=== PATIENT | female | born 1955 | race Caucasian/White ===

== ENCOUNTER → 2019-11-11 14:16 | Outpatient (CLI) | payer MEDICARE, SELFPAY ==
--- NOTE | 2019-11-11 14:22 | CT_ITS ---
STUDY: LOW DOSE CT LUNG CANCER SCREENING REASON FOR EXAM: Female, 64 years old. LUNG SCREEN/CURRENT SMOKER, 4 PER DAY, 52 YR SMOKER, HX CERVICAL CA RADIATION DOSAGE (If Supplied By Facility): CTDIvol = ( 3.02 ) mGy, DLP = ( 101.18 ) mGycm TECHNIQUE: No contrast was administered. Low dose technique was utilized (average mAS-38 and kVp 120). 1.25 mm axial source images with a slice interval of 1.25-mm were reconstructed in lung windows. 2.5 mm axial source images with a slice interval of 2.5-mm were reconstructed in lung windows. 5.0 mm axial source images with a slice interval of 5.0-mm were reconstructed in soft tissue windows. Nodule measured using lung windows on PACS and/or independent workstation with automated measurement of minimum and maximum diameter. Nodule measurement reported as average diameter rounded to the nearest whole number. Growth is defined as an increase ins size of greater than 1.5 mm. COMPARISON: None. NODULES: Total lung nodules (excluding granulomas): 0 Emphysema: None significant. Mild bronchiectasis and scattered parenchymal fibrosis most localized in the lingula. Endobronchial lesion: None Aorta: Scattered atherosclerosis without obvious aneurysm. Coronary arteries: Mild atherosclerosis Heart: Normal size Pulmonary artery: Unremarkable for unopacified technique. Mediastinal nodes: No dominant tracy mass. Other chest and abdominal findings: Bilateral breast implants identified. There are degenerative changes of the thoracic spine. CT/Chest without Contrast IMPRESSION: 1. Lung-RADS category 1 - Continue annual screening with LDCT in 12 months. IMPORTANT NOTES FOR USE: ACR Lung-RADS Version 1.0 Assessment Categories Release Date: February 14, 2014 Category: Coded 0-4 bases on nodule(s) with highest degree of suspicion. Negative screen is defined as categories 1 and 2; a positive screen is defined as categories 3 and 4. Category 3 and 4A nodules that are unchanged on interval CT should be coded as category 2, and individuals returned to screening in 12 months. Category 4X: Category 3 or 4 nodules with additional imaging findings that increase the suspicion of lung cancer, such as spiculation, GGN that doubles in size in 1 year, enlarged lymph notes, etc. Category Modifiers: S (significant finding unrelated to lung cancer) and C (prior history of treated lung cancer) may be added to the 0-4 Lung-RADS Electronically Signed: Jose Crawford MD (Brooks) at 10:18 EST , Service support ,
== END ==
PROVIDERS: PCP Family Medicine; Referring Provider Family Medicine; Visit Provider Family Medicine
DX: F17.210 Nicotine dependence, cigarettes, uncomplicated (principal); N89.8 Other specified noninflammatory disorders of vagina; Z12.2 Encounter for screening for malignant neoplasm of respiratory organs
CPT/HCPCS: 71250; 87210; G0297

== ENCOUNTER → 2020-11-14 13:10 | Outpatient (CLI) | payer MEDICARE, SELFPAY ==
--- NOTE | 2020-11-14 13:17 | CT_ITS ---
STUDY: LOW DOSE CT LUNG CANCER SCREENING REASON FOR EXAM: Female, 65 years old. Tobacco use, smoked 3 packs/day x 54 years, now down to less than 1/2 pack per day. Hx cervical cancer, breast implants. RADIATION DOSAGE (If Supplied By Facility): CTDIvol = ( 3.02 ) mGy, DLP = ( 106.84 ) mGycm TECHNIQUE: No contrast was administered. Low dose technique was utilized (average mAS-38 and kVp 120). 1.25 mm axial source images with a slice interval of 1.25-mm were reconstructed in lung windows. 2.5 mm axial source images with a slice interval of 2.5-mm were reconstructed in lung windows. 5.0 mm axial source images with a slice interval of 5.0-mm were reconstructed in soft tissue windows. Nodule measured using lung windows on PACS and/or independent workstation with automated measurement of minimum and maximum diameter. Nodule measurement reported as average diameter rounded to the nearest whole number. Growth is defined as an increase ins size of greater than 1.5 mm. COMPARISON: Comparison is made with prior examination dated 11/11/2019. NODULES: No suspicious nodules are seen. Mild residual scarring in the lingular segment of the left upper lobe anteriorly. Emphysema: Stable scarring at the lung apices with a mild degree of emphysematous changes in the upper lobes. Endobronchial lesion: None Aorta: Atherosclerotic plaque of the aortic arch. Coronary arteries: Mild coronary artery calcification. Heart: Unremarkable Pulmonary artery: Unremarkable Mediastinal nodes: Other chest and abdominal findings: CT/Low Dose CT Lung Screening IMPRESSION: Lung-RADS category 2 - Continue annual screening with LDCT in 12 months. IMPORTANT NOTES FOR USE: ACR Lung-RADS Version 1.0 Assessment Categories Release Date: February 14, 2014 Category: Coded 0-4 bases on nodule(s) with highest degree of suspicion. Negative screen is defined as categories 1 and 2; a positive screen is defined as categories 3 and 4. Category 3 and 4A nodules that are unchanged on interval CT should be coded as category 2, and individuals returned to screening in 12 months. Category 4X: Category 3 or 4 nodules with additional imaging findings that increase the suspicion of lung cancer, such as spiculation, GGN that doubles in size in 1 year, enlarged lymph notes, etc. Category Modifiers: S (significant finding unrelated to lung cancer) and C (prior history of treated lung cancer) may be added to the 0-4 Lung-RADS Electronically Signed: César Ch MD at 14:12 EST , Service support ,
== END ==
PROVIDERS: PCP Family Medicine; Referring Provider Family Medicine; Visit Provider Family Medicine
DX: F17.210 Nicotine dependence, cigarettes, uncomplicated (principal); Z12.2 Encounter for screening for malignant neoplasm of respiratory organs
CPT/HCPCS: 71271

== ENCOUNTER → 2021-02-22 10:54 | Outpatient (CLI) | payer MEDICARE, SELFPAY ==
[2021-02-22 12:37] LABS: Absolute Lymphocyte Count 1.62 X10^3/uL (0.83-4.51); Absolute Neutrophil Count 3.7 X10^3/uL (2.0-7.7); Basophil# 0.04 X10^3/uL; Basophil% 0.6 % (0-1); Eosinophils% 3.2 % (0-5); Hematocrit 36.2 % (37-47); Hemoglobin 10.3 g/dL (12.0-15.0); Lymphocyte # 1.62 X10^3/ul (0.83-4.51); Lymphocyte % 26.2 % (19-41); Mean Corp Hgb Conc 28.5 g/dL (32-36); Mean Corpuscular Hgb 22.5 pg (27.0-32.0); Mean Corpuscular Volume 79.2 fL (81-99); Mean Platelet Vol. 10.8 fl (6.2-12.0); Monocyte# 0.64 X10^3/uL; Monocyte% 10.3 % (0-10); NRBC Flagged by Analyzer 0 % (0-5); Neutrophil # 3.68 X10^3/uL (2.7-7.7); Neutrophil % 59.5 % (47-70); Platelet Count 331 K/mm3 (150-450); RBC Distribution Width CV 15.9 % (11.6-14.6); RBC Distribution Width SD 45.6 fl (35.1-43.9); Red Blood Count 4.57 M/mm3 (4.2-5.4); White Blood Count 6.2 K/mm3 (4.4-11.0)
[2021-02-22 12:51] LABS: Vitamin B12 > 2000 pg/mL (211-911)
[2021-02-22 13:25] LABS: AST(SGOT) 18 U/L (15-37); Alanine Aminotransfer ALT/SGPT 24 U/L (13-56); Albumin, Serum 3.9 g/dL (3.2-5.0); Alkaline Phosphatase 93 U/L (45-117); Bilirubin, Direct 0.14 mg/dL (0.00-0.30); Ferritin 4 ng/mL (8-252); Globulin 3.5 g/dL (2.2-4.2); Iron 15 ug/dL (50-170); Iron Binding Capacity,Total 492 ug/dL (250-450); Protein, Total 7.4 g/dL (6.4-8.2)
== END ==
PROVIDERS: PCP Family Medicine; Referring Provider Family Medicine; Visit Provider Family Medicine
DX: R68.2 Dry mouth, unspecified (principal); F50.89 Other specified eating disorder; L29.9 Pruritus, unspecified
CPT/HCPCS: 36415; 80076; 82607; 82728; 82746; 83540; 83550; 85025

== ENCOUNTER → 2021-04-10 09:08 | Outpatient (CLI) | payer MEDICARE, SELFPAY ==
[2021-04-10 10:17] LABS: Absolute Lymphocyte Count 1.37 X10^3/uL (0.83-4.51); Absolute Neutrophil Count 2.3 X10^3/uL (2.0-7.7); Basophil# 0.04 X10^3/uL; Basophil% 0.9 % (0-1); Eosinophil# 0.27 X10^3/uL; Hematocrit 41.3 % (37-47); Hemoglobin 12.5 g/dL (12.0-15.0); Lymphocyte # 1.37 X10^3/ul (0.83-4.51); Lymphocyte % 30.2 % (19-41); Mean Corp Hgb Conc 30.3 g/dL (32-36); Mean Corpuscular Hgb 25.5 pg (27.0-32.0); Mean Corpuscular Volume 84.1 fL (81-99); Mean Platelet Vol. 10.7 fl (6.2-12.0); NRBC Flagged by Analyzer 0 % (0-5); Neutrophil # 2.34 X10^3/uL (2.7-7.7); Neutrophil % 51.7 % (47-70); POSITIVE MORPHOLOGY YES; Platelet Count 268 K/mm3 (150-450); RBC Distribution Width CV 22.6 % (11.6-14.6); Red Blood Count 4.91 M/mm3 (4.2-5.4); White Blood Count 4.5 K/mm3 (4.4-11.0)
[2021-04-10 10:24] LABS: Differential Indicated SCAN CRITERIA MET
[2021-04-10 10:50] LABS: Vitamin B12 > 2000 pg/mL (211-911)
[2021-04-10 10:54] LABS: Ferritin 29 ng/mL (8-252)
[2021-04-10 11:04] LABS: Anisocytosis 1+
== END ==
PROVIDERS: PCP Family Medicine; Referring Provider Family Medicine; Visit Provider Family Medicine
DX: D50.9 Iron deficiency anemia, unspecified (principal); E53.8 Deficiency of other specified B group vitamins
CPT/HCPCS: 36415; 82607; 82728; 85025

== ENCOUNTER → 2021-06-22 08:30 | Outpatient (CLI) | payer MEDICARE, SELFPAY ==
[2021-06-22 10:43] LABS: Vitamin B12 1474 pg/mL (211-911)
== END ==
PROVIDERS: PCP Family Medicine; Referring Provider Family Medicine; Visit Provider Family Medicine
DX: D50.9 Iron deficiency anemia, unspecified (principal)
CPT/HCPCS: 36415; 82607

== ENCOUNTER → 2021-09-04 14:16 | Outpatient (CLI) | payer MEDICARE, SELFPAY ==
[2021-09-04 17:45] LABS: Absolute Lymphocyte Count 1.57 X10^3/uL (0.83-4.51); Absolute Neutrophil Count 3.8 X10^3/uL (2.0-7.7); Basophil# 0.04 X10^3/uL; Basophil% 0.6 % (0-1); Eosinophil# 0.17 X10^3/uL; Eosinophils% 2.7 % (0-5); Hematocrit 41.8 % (37-47); Hemoglobin 13.4 g/dL (12.0-15.0); Lymphocyte # 1.57 X10^3/ul (0.83-4.51); Lymphocyte % 25.2 % (19-41); Mean Corp Hgb Conc 32.1 g/dL (32-36); Mean Corpuscular Hgb 31.2 pg (27.0-32.0); Mean Corpuscular Volume 97.2 fL (81-99); Mean Platelet Vol. 11.5 fl (6.2-12.0); Monocyte# 0.59 X10^3/uL; Monocyte% 9.5 % (0-10); NRBC Flagged by Analyzer 0 % (0-5); Neutrophil # 3.83 X10^3/uL (2.7-7.7); Neutrophil % 61.7 % (47-70); Platelet Count 267 K/mm3 (150-450); RBC Distribution Width CV 12.7 % (11.6-14.6); RBC Distribution Width SD 45.1 fl (35.1-43.9); White Blood Count 6.2 K/mm3 (4.4-11.0)
== END ==
PROVIDERS: PCP Family Medicine; Referring Provider Family Medicine; Visit Provider Family Medicine
DX: J40 Bronchitis, not specified as acute or chronic (principal); D50.9 Iron deficiency anemia, unspecified
CPT/HCPCS: 36415; 85025

== ENCOUNTER 2021-11-30 06:46 | Outpatient (CLI) | payer MEDICARE, SELFPAY ==
--- NOTE | 2021-11-30 06:52 | CT_ITS ---
STUDY: LOW DOSE CT LUNG CANCER SCREENING REASON FOR EXAM: Female, 66 years old. SMOKER. Patient smoked 3 packs per day for 55 years. RADIATION DOSAGE (If Supplied By Facility): CTDIvol = ( 2.01 ) mGy, DLP = ( 68.71 ) mGycm TECHNIQUE: No contrast was administered. Low dose technique was utilized (average mAS-38 and kVp 120). 1.25 mm axial source images with a slice interval of 1.25-mm were reconstructed in lung windows. 2.5 mm axial source images with a slice interval of 2.5-mm were reconstructed in lung windows. 5.0 mm axial source images with a slice interval of 5.0-mm were reconstructed in soft tissue windows. Nodule measured using lung windows on PACS and/or independent workstation with automated measurement of minimum and maximum diameter. Nodule measurement reported as average diameter rounded to the nearest whole number. Growth is defined as an increase ins size of greater than 1.5 mm. COMPARISON: Comparison is made with prior study dated 11/14/2020. NODULES: No suspicious nodules are seen. Emphysema: Hyperinflation. Emphysematous changes. Stable scarring in the upper lobes. Linear scarring in the lingular segment of the left upper lobe. This is unchanged. Mild linear scarring in the lower lobes as well. Endobronchial lesion: None Aorta: Atherosclerotic plaque formation of the aortic arch. Coronary arteries: Mild coronary artery calcification. Heart: Unremarkable Pulmonary artery: Unremarkable Mediastinal nodes: Unremarkable Other chest and abdominal findings: CT/Low Dose CT Lung Screening IMPRESSION: Lung-RADS category 2 - Continue annual screening with LDCT in 12 months. IMPORTANT NOTES FOR USE: ACR Lung-RADS Version 1.1 Assessment Categories Release Date: 2018 Category: Coded 0-4 bases on nodule(s) with highest degree of suspicion. Negative screen is defined as categories 1 and 2; a positive screen is defined as categories 3 and 4. Category 3 and 4A nodules that are unchanged on interval CT should be coded as category 2, and individuals returned to screening in 12 months. Category 4X: Category 3 or 4 nodules with additional imaging findings that increase the suspicion of lung cancer, such as spiculation, GGN that doubles in size in 1 year, enlarged lymph notes, etc. Category Modifiers: S (significant finding unrelated to lung cancer) Electronically Signed: César Ch MD at 15:02 EST ,
== END 2021-11-30 23:59 | disposition home or self-care (01) ==
LOC: CT 06:50
PROVIDERS: PCP Family Medicine; Referring Provider Family Medicine; Visit Provider Family Medicine
DX: F17.210 Nicotine dependence, cigarettes, uncomplicated (principal)
CPT/HCPCS: 71271

== ENCOUNTER 2021-12-05 14:24 | Outpatient (CLI) | payer MEDICARE, SELFPAY ==
--- NOTE | 2021-12-05 14:26 | BI_ITS ---
MAMMOGRAPHY - BILATERAL SCREENING REASON FOR EXAM: Female, 66 years old. Routine annual screening examination. PERTINENT HISTORY: Sister with breast cancer. Bilateral breast implants. TECHNIQUE: Digital bilateral breast bill (3D mammographic acquisition) in the CC and MLO projections. 2-D mediolateral oblique (MLO) and craniocaudad (CC) views of both breasts were obtained. CAD: Full Field Digital Mammography with Computer Added Detection was performed. COMPARISON: Comparison is made with prior abdomen examination dated 12/31/2018. FINDINGS: Breast Composition: There are scattered areas of fibroglandular density. There is a 1.4 cm x 1.5 cm well-defined nodule in the deep upper outer aspect of the left breast. Correlation with ultrasound is recommended. Stable appearance of the bilateral breast implants. No other significant abnormalities are identified. BI/SCRN MAMM (CAD)W/BILL BILAT IMPRESSION: 1.4 cm x 1.5 cm well-defined nodule in the deep upper outer aspect of the left breast. Correlation with ultrasound is recommended. ASSESSMENT CATEGORY: BIRADS Category 0: Incomplete. Need additional imaging evaluation. A letter regarding these results will be sent to the patient by the facility within 30 days. Approximately 10% of breast cancers are not detected by mammography. A normal mammogram should not delay biopsy of a clinically suspicious abnormality. [id number] Electronically Signed: César Ch MD at 13:09 EST ,
== END 2021-12-05 23:59 | disposition home or self-care (01) ==
LOC: OPBI 14:24
PROVIDERS: PCP Family Medicine; Referring Provider Family Medicine; Visit Provider Family Medicine
DX: Z12.31 Encounter for screening mammogram for malignant neoplasm of breast (principal)
CPT/HCPCS: 77063; 77067

== ENCOUNTER 2021-12-18 14:20 | Outpatient (CLI) | payer MEDICARE, SELFPAY ==
--- NOTE | 2021-12-18 14:23 | US_ITS ---
STUDY: ULTRASOUND BREAST - LEFT REASON FOR EXAM: Female, 66 years old. Abnormal screening mammogram. TECHNIQUE: Axial and longitudinal images of the LEFT breast were performed with a high resolution ultrasound transducer. # OF IMAGES: 13 COMPARISON: Comparison is made with prior mammogram dated 12/05/2021. FINDINGS: LEFT Breast: The mammographic abnormality corresponds to a 1.3 cm x 1.6 cm x 0.4 cm cyst at the 1 o''clock position of the breast at 6 cm from the nipple. US/Breast Limited Unilateral IMPRESSION: The mammographic abnormality corresponds to a 1.3 cm x 1.6 cm x 0.4 cm cyst at the 1 o''clock position of the breast at 6 cm from the nipple. ASSESSMENT CATEGORY: BIRADS Category 2: Benign. A letter regarding these results will be sent to the patient by the facility within 30 days. Electronically Signed: César Ch MD at 15:15 EST ,
== END 2021-12-18 23:59 | disposition home or self-care (01) ==
LOC: OPUS 14:21
PROVIDERS: PCP Family Medicine; Referring Provider Family Medicine; Visit Provider Family Medicine
DX: R92.8 Other abnormal and inconclusive findings on diagnostic imaging of breast (principal)
CPT/HCPCS: 76642

== ENCOUNTER → 2022-07-12 | Outpatient (CLI) | payer MEDICARE, SELFPAY ==
[2022-07-12 12:21] LABS: Absolute Lymphocyte Count 0.95 X10^3/uL (0.83-4.51); Absolute Neutrophil Count 7.7 X10^3/uL (2.0-7.7); Basophil# 0.02 X10^3/uL; Basophil% 0.2 % (0-1); Eosinophil# 0.09 X10^3/uL; Hematocrit 43.8 % (37-47); Hemoglobin 14.1 g/dL (12.0-15.0); Lymphocyte # 0.95 X10^3/ul (0.83-4.51); Lymphocyte % 10.1 % (19-41); Mean Corp Hgb Conc 32.2 g/dL (32-36); Mean Corpuscular Volume 99.5 fL (81-99); Mean Platelet Vol. 11.6 fl (6.2-12.0); Monocyte# 0.54 X10^3/uL; Monocyte% 5.8 % (0-10); NRBC Flagged by Analyzer 0 % (0-5); Neutrophil # 7.73 X10^3/uL (2.7-7.7); Neutrophil % 82.6 % (47-70); Platelet Count 198 K/mm3 (150-450); RBC Distribution Width CV 12.5 % (11.6-14.6); RBC Distribution Width SD 46.1 fl (35.1-43.9); White Blood Count 9.4 K/mm3 (4.4-11.0)
[2022-07-12 12:37] LABS: AST(SGOT) 21 U/L (15-37); Alanine Aminotransfer ALT/SGPT 31 U/L (13-56); Albumin, Serum 3.7 g/dL (3.2-5.0); Alkaline Phosphatase 85 U/L (45-117); Anion Gap 7 (5-15); BUN 22 mg/dL (7-18); BUN/Creat Ratio 27.2 RATIO (10-20); Bilirubin, Direct 0.23 mg/dL (0.00-0.30); Calcium,Total 8.8 mg/dL (8.5-10.1); Chloride 107 mmol/L (98-107); Creatinine, Serum 0.81 mg/dL (0.55-1.02); EST Glomerular Filtration Rate 75 mL/min (>60); Est Glom Filt Rate - Afr Amer 91 mL/min (>60); Ferritin 24 ng/mL (8-252); Glucose 88 mg/dL (74-106); Iron 60 ug/dL (50-170); Iron Binding Capacity,Total 341 ug/dL (250-450); PERCENT IRON SATURATION 17.6 % (15.0-55.0); Potassium 3.8 mmol/L (3.5-5.1); Protein, Total 6.7 g/dL (6.4-8.2); Sodium Level 142 mmol/L (136-145)
== END | disposition home or self-care (01) ==
LOC: MTLAB 10:36
PROVIDERS: PCP Family Medicine; Referring Provider Family Medicine; Visit Provider Family Medicine
DX: R10.12 Left upper quadrant pain (principal); D50.9 Iron deficiency anemia, unspecified
CPT/HCPCS: 36415; 80048; 80076; 82728; 83540; 83550; 85025

== ENCOUNTER → 2022-07-19 | Outpatient (CLI) | payer MEDICARE, SELFPAY ==
--- NOTE | 2022-07-19 08:20 | US_ITS ---
PROCEDURES: ULTRASOUND AORTA REASON FOR EXAM: Female, 67 years old. LUQ PAIN. History of smoking. Weight loss. TECHNIQUE: Ultrasound evaluation of the aorta was performed with real-time and static espana-scale imaging. COMPARISON: None. FINDINGS: There is atherosclerotic plaque formation of the abdominal aorta. Aorta measures: Proximal 2.7 cm. Middle 2.1 cm. Distal 2.0 cm. Aorta measure transversely: Proximal 2.7 cm. Middle 1.5 cm. Distal 1.5 cm. Right iliac artery measures: 1.1 cm. Right iliac artery measure transversely: 0.8 cm. Left iliac artery measures: 1.0 cm. Left iliac artery measure transversely: 0.7 cm. There is no demonstrated aneurysm.. US/Aorta IMPRESSION: Atherosclerotic plaque formation of the abdominal aorta. No evidence of aneurysm. Electronically Signed: César Ch MD at 12:13 EDT ,
== END | disposition home or self-care (01) ==
LOC: US 08:18
PROVIDERS: PCP Family Medicine; Referring Provider Family Medicine; Visit Provider Family Medicine
DX: R10.12 Left upper quadrant pain (principal)
CPT/HCPCS: 76775

== ENCOUNTER → 2022-07-25 | Outpatient (CLI) | payer MEDICARE, SELFPAY ==
[2022-07-25 16:27] LABS: Free T3 2.6 pg/mL (2.18-3.98); T4 Free Direct 0.83 ng/dL (0.76-1.46); Thyroid Stim Hormone (TSH) 3.27 uIU/mL (0.358-3.74)
[2022-07-30 00:07] LABS: Thyroid Peroxidase AB 232 IU/mL (0-34)
[2022-07-30 10:47] LABS: Thyroglobulin Antibody 3.3 IU/mL (0.0-0.9)
== END | disposition home or self-care (01) ==
LOC: BFHLAB 13:28
PROVIDERS: PCP Family Medicine; Visit Provider Family Medicine
DX: E05.90 Thyrotoxicosis, unspecified without thyrotoxic crisis or storm (principal)
CPT/HCPCS: 36415; 84439; 84443; 84481; 86376; 86800

== ENCOUNTER → 2022-08-21 | Outpatient (CLI) | payer MEDICARE, SELFPAY ==
[2022-08-21 19:07] LABS: CRP < 2.90 mg/L (0.0-3.0); Thyroid Stim Hormone (TSH) 3.98 uIU/mL (0.358-3.74)
[2022-08-23 15:08] LABS: Endomysial Antibody IgA Negative (Negative)
[2022-08-24 17:46] LABS: Immunoglobulin A 177 mg/dL (87-352); t-Transglutaminase IgA <2 U/mL (0-3)
== END | disposition home or self-care (01) ==
LOC: MTLAB 16:52
PROVIDERS: PCP Family Medicine; Visit Provider Internal Medicine Gastroenterology
DX: R63.4 Abnormal weight loss (principal)
CPT/HCPCS: 36415; 82784; 83516; 84436; 84443; 86140; 86255

== ENCOUNTER → 2022-09-03 | Outpatient (CLI) | payer MEDICARE, SELFPAY ==
--- NOTE | 2022-09-03 12:53 | CT_ITS ---
STUDY: CT ABDOMEN AND PELVIS WITH CONTRAST REASON FOR EXAM: Female, 67 years old. ROSHNI` RADIATION DOSAGE (If Supplied By Facility): CTDIvol = ( 10.61 ) mGy, DLP = ( 396.95 ) mGycm TECHNIQUE: Transaxial images were obtained from the dome of the diaphragm to the symphysis pubis without oral contrast. Oral and amp; IV Readi-CAT and amp; 100mL Isovue-300 was administered. Sagittal and coronal images were reconstructed. Individualized dose optimization techniques were used for this CT. COMPARISON: None. FINDINGS: The visualized lung bases are unremarkable. The visualized portions of the heart are within normal limits. Normal liver. Patient is status post cholecystectomy. There is no evidence for biliary ductal dilatation. Normal spleen. Normal pancreas. Normal bilateral adrenal glands. There is a 3 cm complex cyst in the upper pole of the right kidney there is an additional 1 cm cyst in the lower pole the right kidney too small to characterize. Normal left kidney. Normal visualized stomach. Normal small intestine. Normal colon. Appendix not well visualized although no inflammation is noted in the right lower quadrant. Normal abdominal aorta. Normal inferior vena cava. Normal retroperitoneum. Evaluation of the urinary bladder is limited secondary to under distention. Normal abdominal wall. Normal osseous structures. CT/Abdomen/Pelvis WITH Contrast IMPRESSION: Complex cyst in the upper pole the right kidney. Follow-up study CT renal protocol recommended for further evaluation. Electronically Signed: Rom Choudhury MD at 14:47 EST ,
[2022-09-03 13:31] LABS: CREATININE FINGERSTICK < 0.9 mg/dL (0.55-1.02); EGFR FINGERSTICK > 60.0000 mL/min (>60)
== END | disposition home or self-care (01) ==
PROVIDERS: PCP Family Medicine; Referring Provider Internal Medicine Gastroenterology; Visit Provider Internal Medicine Gastroenterology
DX: D50.9 Iron deficiency anemia, unspecified (principal); R63.4 Abnormal weight loss
CPT/HCPCS: 74177; Q9967

== ENCOUNTER → 2022-10-03 | Outpatient (CLI) | payer MEDICARE, SELFPAY ==
[2022-10-03 15:00] LABS: Absolute Neutrophil Count 3.4 X10^3/uL (2.0-7.7); Basophil# 0.03 X10^3/uL; Basophil% 0.6 % (0-1); Eosinophil# 0.09 X10^3/uL; Eosinophils% 1.7 % (0-5); Hematocrit 44.7 % (37-47); Hemoglobin 14.5 g/dL (12.0-15.0); Lymphocyte % 24.2 % (19-41); Mean Corp Hgb Conc 32.4 g/dL (32-36); Mean Corpuscular Volume 95.7 fL (81-99); Mean Platelet Vol. 11.9 fl (6.2-12.0); Monocyte# 0.53 X10^3/uL; Monocyte% 9.9 % (0-10); NRBC Flagged by Analyzer 0 % (0-5); Neutrophil # 3.42 X10^3/uL (2.7-7.7); Neutrophil % 63.4 % (47-70); Platelet Count 249 K/mm3 (150-450); RBC Distribution Width CV 12.7 % (11.6-14.6); Red Blood Count 4.67 M/mm3 (4.2-5.4); White Blood Count 5.4 K/mm3 (4.4-11.0)
[2022-10-03 15:18] LABS: Free T3 2.7 pg/mL (2.18-3.98); T4 Free Direct 0.83 ng/dL (0.76-1.46); Thyroid Stim Hormone (TSH) 3.92 uIU/mL (0.358-3.74)
== END | disposition home or self-care (01) ==
LOC: BFHLAB 11:47
PROVIDERS: PCP Family Medicine; Visit Provider Family Medicine
DX: E03.9 Hypothyroidism, unspecified (principal); I48.92 Unspecified atrial flutter
CPT/HCPCS: 36415; 84439; 84443; 84481; 85025

== ENCOUNTER → 2022-10-18 | Outpatient (CLI) | payer MEDICARE, SELFPAY ==
--- NOTE | 2022-10-18 12:54 | ECHOD_ITS ---
Reason For Study: AFLUTTER Procedure This was a 2D Doppler, Color Flow transthoracic echocardiogram. The exam was of adequate technical quality. Exam performed in department. Left Ventricle Normal LV size. Left ventricular systolic function is normal. The estimated ejection fraction is 65 %. Diastolic function is indeterminate. No regional wall motion abnormalities noted. Right Ventricle Normal RV size. Normal systolic function. Atria Normal left atrium. Normal right atrium. No doppler evidence for ASD. Mitral Valve There is no mitral annular calcification. Anterior leaflet diffuse mitral valve thickening. Mild (1+) mitral valve insufficiency. Tricuspid Valve Normal tricuspid valve. Mild to moderate (1-2+) tricuspid valve insufficiency. Right ventricular systolic pressure estimated to be 39 mmHg. Aortic Valve Trisinus/trileaflet aortic valve. Mild diffuse aortic valve thickening. Trivial aortic valve insufficiency. Pulmonic Valve The pulmonic valve is not well visualized. Great Vessels Mildly dilated aortic root. Pericardium/Pleural No pericardial effusion. MMode/2D Measurements & Calculations LVIDd: 4.5 cm IVSd: 0.91 cm Ao root diam: 4.2 cm LVIDs: 2.9 cm LVPWd: 1.0 cm RVDd: 3.6 cm FS: 35.7 % LAV(MOD-sp4): 45.6 ml LVAd ap4: 20.6 cm2 SV(MOD-sp4): 33.0 ml LVLd ap4: 6.5 cm EDV(MOD-sp4): 53.1 ml EDV(sp4-el): 55.6 ml LVAs ap4: 10.4 cm2 LVLs ap4: 4.5 cm ESV(MOD-sp4): 20.1 ml ESV(sp4-el): 20.3 ml EF(MOD-sp4): 62.2 % EF(sp4-el): 63.4 % SV(sp4-el): 35.2 ml LA A4 area: 18.0 cm2 RA A4 area: 18.6 cm2 Time Measurements MV dec time: 0.16 sec Doppler Measurements & Calculations MV E max dexter: 104.5 cm/sec Lat Peak E' Dexter: 7.7 cm/sec Med Peak E' Dexter: 6.7 cm/sec MV A max dexter: 90.4 cm/sec E/E' lat: 13.6 E/E' med: 15.6 MV E/A: 1.2 MV V2 max: 100.0 cm/sec Ao V2 max: 120.1 cm/sec MV max P.0 mmHg MV dec slope: 664.7 cm/sec2 Ao max P.8 mmHg MV V2 mean: 71.7 cm/sec Ao V2 mean: 85.1 cm/sec MV mean P.2 mmHg Ao mean P.3 mmHg MV V2 VTI: 23.6 cm Ao V2 VTI: 26.9 cm AV (velocity ratio): 0.91 LV V1 max: 104.5 cm/sec PA V2 max: 84.7 cm/sec TR max dexter: 244.2 cm/sec LV V1 max P.4 mmHg PA V2 mean: 63.4 cm/sec TR max P.9 mmHg LV V1 mean P.5 mmHg LV V1 mean: 74.1 cm/sec LV V1 VTI: 24.4 cm ECHO/Echo Complete Interpretation Summary Left ventricular systolic function is normal. The estimated ejection fraction is 65 %. Anterior leaflet diffuse mitral valve thickening. Mild (1+) mitral valve insufficiency. Mild to moderate (1-2+) tricuspid valve insufficiency. Mild diffuse aortic valve thickening. Trivial aortic valve insufficiency. Mildly dilated aortic root. Right ventricular systolic pressure estimated to be 39 mmHg. Diastolic function is indeterminate. Ordering Physician: Ana Massey Referring Physician: ANA MASSEY Performed By: Avril Ivey RCS
== END | disposition home or self-care (01) ==
LOC: CVS 12:52
PROVIDERS: PCP Family Medicine; Visit Provider Family Medicine
DX: I48.4 Atypical atrial flutter (principal)
CPT/HCPCS: 93306

== ENCOUNTER → 2022-11-14 | Outpatient (CLI) | payer MEDICARE, SELFPAY ==
--- NOTE | 2022-11-14 12:30 | STRESSREP ---
Stress Test Report Date: 11/14/2022 Procedure: Exercise tolerance test/imaging study Indications: Dyspnea on exertion Consent: Per the patient Procedure: The patient exercised on a Marcos protocol for 7 minutes and 15 seconds achieving a peak heart rate of 116 bpm (76% predicted maximal heart rate) with a peak blood pressure 112/60 mmHg and a peak MET capacity of 10.1 METs. The baseline ECG demonstrated normal sinus rhythm. The peak exercise ECG demonstrated no ischemic changes. There were no cardiac dysrhythmias pretest, during exercise, or recovery. The functional capacity was considered average. There was no complaint of chest discomfort during exercise or recovery. The examination was discontinued secondary to leg discomfort. The patient was injected with 11.7 mCi of technetium 99m Cardiolite and subsequently rest SPECT Cardiolite nuclear imaging was obtained in the horizontal long, vertical long, and short axis views. Post-exercise, the patient was injected with 33.1 mCi of technetium 99m Cardiolite and subsequently stress SPECT Cardiolite nuclear imaging was obtained in the horizontal long, vertical long, and short axis views. A gated Cardiolite study at peak stress was obtained. Rest and stress SPECT Cardiolite nuclear imaging status post realignment, normalization, and attenuation correction, demonstrates the appearance of relative uniform tracer uptake and myocardial perfusion appearing within normal limits. There is end systolic thickening and brightening. The gated Cardiolite study demonstrates myocardial thickening and inward wall motion. The reported LVEF is 79%. Impression: 1. Mildly suboptimal test secondary to failure to achieve target heart rate 2. Peak exercise ECG no ischemic change 3. There were no cardiac dysrhythmias pretest, during exercise, or recovery 4. Rest and stress SPECT Cardiolite nuclear imaging demonstrate no fixed or reversible perfusion deep. 5. The gated Cardiolite study reports an LVEF of 79%. This note was generated with [employer] software. It may contain incorrect words, spelling, and punctuation that were not noted in checking the note before signing.
== END | disposition home or self-care (01) ==
PROVIDERS: PCP Family Medicine; Referring Provider Internal Medicine Cardiovascular Disease; Visit Provider Internal Medicine Cardiovascular Disease
DX: Z01.810 Encounter for preprocedural cardiovascular examination (principal); I48.92 Unspecified atrial flutter; R06.09 Other forms of dyspnea; R00.2 Palpitations; R00.0 Tachycardia, unspecified
CPT/HCPCS: 78452; 93017; A9500; A4216

== ENCOUNTER → 2022-12-19 | Outpatient (CLI) | payer MEDICARE, SELFPAY ==
[2022-12-19 17:47] LABS: Absolute Lymphocyte Count 1.43 X10^3/uL (0.83-4.51); Absolute Neutrophil Count 2.6 X10^3/uL (2.0-7.7); Basophil# 0.05 X10^3/uL; Eosinophil# 0.16 X10^3/uL; Eosinophils% 3.3 % (0-5); Hematocrit 30.4 % (37-47); Hemoglobin 8.8 g/dL (12.0-15.0); Lymphocyte # 1.43 X10^3/ul (0.83-4.51); Lymphocyte % 29.7 % (19-41); Mean Corp Hgb Conc 28.9 g/dL (32-36); Mean Corpuscular Volume 86.4 fL (81-99); Mean Platelet Vol. 10.5 fl (6.2-12.0); Monocyte# 0.55 X10^3/uL; Monocyte% 11.4 % (0-10); NRBC Flagged by Analyzer 0 % (0-5); Neutrophil # 2.61 X10^3/uL (2.7-7.7); Neutrophil % 54.4 % (47-70); Platelet Count 293 K/mm3 (150-450); RBC Distribution Width SD 44.5 fl (35.1-43.9); Red Blood Count 3.52 M/mm3 (4.2-5.4); White Blood Count 4.8 K/mm3 (4.4-11.0)
[2022-12-19 18:15] LABS: ALB/GLOB Ratio 1.3 RATIO (0.9-2.4); AST(SGOT) 28 U/L (15-37); Alanine Aminotransfer ALT/SGPT 32 U/L (13-56); Albumin, Serum 3.9 g/dL (3.2-5.0); Alkaline Phosphatase 88 U/L (45-117); Anion Gap 6 (5-15); BUN 29 mg/dL (7-18); BUN/Creat Ratio 33.3 RATIO (10-20); Chloride 106 mmol/L (98-107); Cholesterol 176 mg/dL (200); Creatinine, Serum 0.87 mg/dL (0.55-1.02); EST Glomerular Filtration Rate 69 mL/min (>60); Est Glom Filt Rate - Afr Amer 83 mL/min (>60); Globulin 2.9 g/dL (2.2-4.2); Glucose 79 mg/dL (74-106); High Density Lipoprotein 84 mg/dL; Potassium 3.9 mmol/L (3.5-5.1); Protein, Total 6.8 g/dL (6.4-8.2); Sodium Level 138 mmol/L (136-145); Thyroid Stim Hormone (TSH) 4.42 uIU/mL (0.358-3.74); Triglycerides 55 mg/dL; Very Low Density Lipoprotein 11 mg/dL (5-40)
== END | disposition home or self-care (01) ==
LOC: BFHLAB 15:22
PROVIDERS: PCP Family Medicine; Visit Provider Family Medicine
DX: Z00.00 Encounter for general adult medical examination without abnormal findings (principal); I48.92 Unspecified atrial flutter; D50.9 Iron deficiency anemia, unspecified; R53.83 Other fatigue; E78.5 Hyperlipidemia, unspecified
CPT/HCPCS: 36415; 80053; 80061; 84443; 85025

== ENCOUNTER → 2023-01-17 | Outpatient (CLI) | payer MEDICARE, SELFPAY ==
[2023-01-17 12:11] LABS: Absolute Lymphocyte Count 1.02 X10^3/uL (0.83-4.51); Absolute Neutrophil Count 4.3 X10^3/uL (2.0-7.7); Basophil# 0.04 X10^3/uL; Basophil% 0.6 % (0-1); Eosinophil# 0.22 X10^3/uL; Eosinophils% 3.5 % (0-5); Hematocrit 46.8 % (37-47); Hemoglobin 14.2 g/dL (12.0-15.0); Lymphocyte # 1.02 X10^3/ul (0.83-4.51); Lymphocyte % 16.4 % (19-41); Mean Corp Hgb Conc 30.3 g/dL (32-36); Mean Corpuscular Hgb 27.5 pg (27.0-32.0); Mean Corpuscular Volume 90.7 fL (81-99); Monocyte# 0.65 X10^3/uL; Monocyte% 10.5 % (0-10); NRBC Flagged by Analyzer 0 % (0-5); Neutrophil # 4.25 X10^3/uL (2.7-7.7); Neutrophil % 68.5 % (47-70); POSITIVE MORPHOLOGY YES; Platelet Count 258 K/mm3 (150-450); RBC Distribution Width CV 21.1 % (11.6-14.6); RBC Distribution Width SD 68.2 fl (35.1-43.9); RET-HE 34.1 pg (30-35); Red Blood Count 5.16 M/mm3 (4.2-5.4); Reticulocyte Count 1.21 % (0.5-1.5); White Blood Count 6.2 K/mm3 (4.4-11.0)
[2023-01-17 12:23] LABS: Differential Indicated SCAN CRITERIA MET
[2023-01-17 12:41] LABS: Anisocytosis 2+; Differential Comment SCANNED; Macrocytosis 1+; Microcytosis 1+
[2023-01-17 12:46] LABS: Ferritin 25 ng/mL (8-252); Iron 111 ug/dL (50-170); Iron Binding Capacity,Total 360 ug/dL (250-450); PERCENT IRON SATURATION 30.8 % (15.0-55.0)
== END | disposition home or self-care (01) ==
PROVIDERS: PCP Family Medicine; Referring Provider Family Medicine; Visit Provider Family Medicine
DX: D50.9 Iron deficiency anemia, unspecified (principal)
CPT/HCPCS: 36415; 82728; 83540; 83550; 85025; 85045

== ENCOUNTER → 2023-01-28 | Outpatient (CLI) | payer MEDICARE, SELFPAY ==
--- NOTE | 2023-01-28 16:43 | BI_ITS ---
MAMMOGRAPHY - BILATERAL SCREENING 3-D TOMOSYNTHESIS REASON FOR EXAM: Female, 67 years old. SCREENING PERTINENT HISTORY: Sister with breast cancer.. Implants TECHNIQUE: 2-D mammograms and 3-D Tomosynthesis of the breast (s) were performed. CAD was performed. COMPARISON: 12/05/2021 FINDINGS: The breast composition is composed of scattered fibroglandular density. Scattered benign calcifications are seen. No dense spiculated masses or suspicious microcalcifications are identified. No architectural distortion is identified. There is no skin thickening or retraction. Stable well-defined 1.4 x 1.5 cm nodule in the upper-outer quadrant of the left breast. This has been previously evaluated with ultrasound and shown to represent a simple cyst. There has been no significant change since the prior study. Implants are intact and free of complication BI/SCRN MAMM (CAD)W/BILL BILAT IMPRESSION: No mammographic signs of malignancy. Routine yearly mammograms recommended. ASSESSMENT CATEGORY: BIRADS Category 2: Benign. A letter regarding these results will be sent to the patient by the facility within 30 days. FOLLOW UP RECOMMENDATION: Yearly follow up mammogram recommended. (A) Approximately 10% of breast cancers are not detected by mammography. A normal mammogram should not delay biopsy of a clinically suspicious abnormality. Electronically Signed: Boo Cruz MD at 7:38 EDT ,
--- NOTE | 2023-01-28 17:18 | CT_ITS ---
STUDY: LOW DOSE CT LUNG CANCER SCREENING REASON FOR EXAM: Female, 67 years old. SMOKER RADIATION DOSAGE (If Supplied By Facility): CTDIvol = ( 2.01 ) mGy, DLP = ( 70.47 ) mGycm TECHNIQUE: No contrast was administered. Low dose technique was utilized (average mAS-38 and kVp 120). 1.25 mm axial source images with a slice interval of 1.25-mm were reconstructed in lung windows. 1.25 mm sagittal and coronal source images with a slice interval of 1.25 were reconstructed in lung windows. COMPARISON: 11/30/2021. NODULES: Parenchyma: Mild bilateral apical scarring. No airspace consolidation, effusion, or pneumothorax. Linear subsegmental atelectasis in the lung bases. Mild bilateral perihilar peribronchial thickening distal endobronchial debris in the medial right middle lobe and anterior left lower lobe. Associated segmental atelectasis along the medial right middle lobe with distal tree-in-bud opacities of the anterior lateral left lower lobe. Nodules: No suspicious pulmonary nodules are seen in the aerated lungs. Aorta: Mild aortic atherosclerosis without ectasia CORONARY ARTERIES: Mild coronary atherosclerosis. Heart: No cardiomegaly. No pericardial effusion. Pulmonary artery: No main pulmonary arterial enlargement. Mediastinal nodes: Multiple subcentimeter presacral lymph nodes are present, nonpathologic by size criteria and unchanged from November 30, 2021 Other chest and abdominal findings: Bilateral breast implants are present. CT/Low Dose CT Lung Screening IMPRESSION: New bilateral peribronchial thickening with intraluminal debris and associated atelectasis in the medial right middle lobe and anterolateral left lower lobe, together suggestive of acute bronchitis/bronchiolitis. Atelectasis limits screening for nodularity in the right middle lobe and anterior left lower lobe. No suspicious pulmonary nodules are identified in the aerated lung. Lung-RADS category 0 - Incomplete. Additional lung cancer screening CT images and/or comparison to prior chest CT examination is needed. RECOMMENDATION: Repeat low-dose cancer screening in 8-12 weeks after treatment IMPORTANT NOTES FOR USE: ACR Lung-RADS Version 1.1 Assessment Categories Release Date: 2018 Category: Coded 0-4 bases on nodule(s) with highest degree of suspicion. Negative screen is defined as categories 1 and 2; a positive screen is defined as categories 3 and 4. Category 3 and 4A nodules that are unchanged on interval CT should be coded as category 2, and individuals returned to screening in 12 months. Category 4X: Category 3 or 4 nodules with additional imaging findings that increase the suspicion of lung cancer, such as spiculation, GGN that doubles in size in 1 year, enlarged lymph notes, etc. Category Modifiers: S (significant finding unrelated to lung cancer) Electronically Signed: Sergei Joaquin MD at 8:20 EDT ,
== END | disposition home or self-care (01) ==
LOC: CT 01-29 07:17
PROVIDERS: PCP Family Medicine; Referring Provider Family Medicine; Visit Provider Family Medicine
DX: Z12.2 Encounter for screening for malignant neoplasm of respiratory organs (principal); Z12.31 Encounter for screening mammogram for malignant neoplasm of breast; Z87.891 Personal history of nicotine dependence
CPT/HCPCS: 71271; 77063; 77067

== ENCOUNTER → 2023-02-21 | Outpatient (CLI) | payer MEDICARE, SELFPAY | END | disposition home or self-care (01) | LOC: LABSPEC 16:05 | PROVIDERS: PCP Family Medicine; Visit Provider Family Medicine | DX: N76.1 Subacute and chronic vaginitis (principal) ==

== ENCOUNTER → 2023-08-06 | Outpatient (CLI) | payer MEDICARE, SELFPAY ==
--- NOTE | 2023-08-06 15:25 | NEURO ---
NCS and/or EMG Patient Report Ordering Doctor: Adam Art DATE OF SERVICE: 08/06/23 Zhanna presents for electrodiagnostic testing of the upper limbs. She reports numbness and tingling in both hands, worse typically on the left side. Electrodiagnostic findings: Left median motor nerve demonstrates normal distal latency and amplitude with reduced conduction velocity. Right median motor nerve demonstrates prolonged distal latency with normal amplitude and reduced conduction velocity. Prolonged median sensory latency at the wrist, more prominently on the right side. Normal ulnar and radial sensory responses bilaterally. Prolonged median F?waves bilaterally. Ulnar motor responses are within normal limits. Needle EMG testing was performed in the upper limbs. All muscles tested showed no evidence of denervation with normal motor unit action potentials. Electrodiagnostic impression: This is an abnormal study in the upper limbs 1. Electrodiagnostic findings suggestive of bilateral median mononeuropathy. This is consistent with a mild bilateral carpal tunnel syndrome. 2. No electrodiagnostic evidence is noted for cervical radiculopathy. Multi Select Codes Neurology Neurology Interp Codes: 92444-63 Musc test done w/n test comp (interp) (2) and 98673-63 Nr cndj test 13/> studies (interp)
== END | disposition home or self-care (01) ==
LOC: PSN 13:38
PROVIDERS: PCP Family Medicine; Referring Provider Orthopaedic Surgery; Visit Provider Orthopaedic Surgery
DX: R20.2 Paresthesia of skin (principal)
CPT/HCPCS: 95886; 95913

== ENCOUNTER → 2023-09-12 | Outpatient (CLI) | payer MEDICARE, SELFPAY ==
--- NOTE | 2023-09-12 17:41 | CT_ITS ---
EXAM: CT ABDOMEN AND PELVIS WITHOUT AND WITH INTRAVENOUS CONTRAST CLINICAL INDICATION: KIDNEY CYST TECHNIQUE: Helically acquired images were obtained of the abdomen and pelvis without and with intravenous contrast. This CT exam was performed using one or more of the following dose reduction techniques: automated exposure control, adjustment of the mA and/or kV according to patient size, and/or use of iterative reconstruction technique. CONTRAST: IV 100mL Isovue-300 COMPARISON: 09/03/2022 FINDINGS: LOWER THORAX: Unremarkable. Lung bases are clear. No cardiomegaly. No significant pericardial effusion. ABDOMEN: LIVER: Unremarkable. Homogeneous. No focal mass. GALLBLADDER AND BILE DUCTS: There are surgical clips from a cholecystectomy. No intra- or extrahepatic biliary ductal dilation. PANCREAS: Unremarkable. No focal cystic or solid mass. SPLEEN: Unremarkable. Normal size without focal cystic or solid mass. ADRENALS: Unremarkable. No nodules. KIDNEYS AND URETERS: There is a low-density lesion in the right kidney compatible with simple cyst. No follow-up imaging is necessary. No hydronephrosis. STOMACH AND BOWEL: There is a 2.0 x 1.3 cm fat density lesion seen within a proximal small bowel loop in the left upper abdomen compatible with a lipoma. This is unchanged from the reference exam. No stomach or bowel distention. No focal inflammatory change. PELVIS: APPENDIX: No evidence of acute appendicitis. BLADDER: Unremarkable. REPRODUCTIVE: The patient status post hysterectomy. ABDOMEN and PELVIS: INTRAPERITONEAL SPACE: Unremarkable. No ascites or other fluid collection. No free air. BONES/JOINTS: Unremarkable. No suspicious lytic or blastic abnormality. SOFT TISSUES: See above. VASCULATURE: Unremarkable. Abdominal aorta is non-dilated. LYMPH NODES: Unremarkable. No enlarged lymph nodes. OTHER FINDINGS: Delayed images show normal excretion of contrast bilaterally. CT/CT Abd/Pelvis W/WO Contrast IMPRESSION: No acute findings in the abdomen or pelvis. Electronically Signed: Kane Jimenez MD at 0:00 EST ,
[2023-09-12 18:07] LABS: CREATININE FINGERSTICK < 0.9 mg/dL (0.55-1.02); EGFR FINGERSTICK > 60.0000 mL/min (>60)
== END | disposition home or self-care (01) ==
LOC: CT 17:39
PROVIDERS: PCP Family Medicine; Referring Provider Family Medicine; Visit Provider Family Medicine
DX: N28.1 Cyst of kidney, acquired (principal)
CPT/HCPCS: 74178; Q9967

== ENCOUNTER → 2023-12-29 | Outpatient (CLI) | payer MEDICARE, SELFPAY ==
--- NOTE | 2023-12-29 09:30 | CT_ITS ---
STUDY: CT ABDOMEN AND PELVIS WITH CONTRAST REASON FOR EXAM: Female, 68 years old. Two-year history of abdominal pain and spasms. History of cervical carcinoma. RADIATION DOSAGE (If Supplied By Facility): CTDIvol = ( 13.98 ) mGy, DLP = ( 575.71 ) mGycm TECHNIQUE: Transaxial images were obtained from the dome of the diaphragm to the symphysis pubis without oral contrast. Oral and amp; IV Gastrografin and amp; 75mL Isovue-300 was administered. Sagittal and coronal images were reconstructed. Individualized dose optimization techniques were used for this CT. COMPARISON: Comparison is made with prior study dated September 12, 2023. FINDINGS: Bilateral breast implants. Minimal increased linear markings at the lung bases suggestive of scarring. The visualized portions of the heart are within normal limits. Mild degree of central intrahepatic biliary ductal dilatation most likely secondary to prior cholecystectomy. There are surgical clips in the gallbladder fossa consistent with a prior cholecystectomy. Normal spleen. Normal pancreas. Normal bilateral adrenal glands. 2.3 cm cyst in the upper pole of the right kidney. 1 cm cyst in the mid lateral portion of the right kidney. Mild degree of right hydronephrosis and right hydroureter. 2 mm nonobstructive calculus in the midpole calyx of the right kidney. Questionable 3 mm calculus in the distal portion of the right ureter. Normal left kidney. Normal visualized stomach. Stable 2 cm x 1.3 cm fat density in the proximal small bowel loop in the left upper quadrant. There are scattered colonic diverticula consistent with diverticulosis. The patient is status post appendectomy. There is evidence of a fatty ileocecal valve. There is scattered atherosclerotic calcification of the abdominal aorta, without a demonstrated aneurysm. Normal inferior vena cava. Normal retroperitoneum. Normal urinary bladder. There is absence of the uterus consistent with a prior hysterectomy. Multiple calcified phleboliths are seen in the pelvis. Normal abdominal wall. Normal osseous structures. CT/Abdomen/Pelvis WITH Contrast IMPRESSION: Status post hysterectomy, cholecystectomy and appendectomy. Mild right hydronephrosis most likely secondary to a tiny calculus in the distal portion of the right ureter. Small right renal cysts. Electronically Signed: César Ch MD at 12:15 EDT ,
[2023-12-29 11:46] LABS: CREATININE FINGERSTICK 1.3 mg/dL (0.55-1.02)
== END | disposition home or self-care (01) ==
LOC: CT 09:30
PROVIDERS: PCP Family Medicine; Referring Provider Surgery; Visit Provider Surgery
DX: R10.9 Unspecified abdominal pain (principal)
CPT/HCPCS: 74177; Q9967

== ENCOUNTER → 2024-01-19 | Outpatient (CLI) | payer MEDICARE, SELFPAY ==
[2024-01-19 12:20] LABS: Absolute Lymphocyte Count 1.56 X10^3/uL (0.83-4.51); Absolute Neutrophil Count 3.4 X10^3/uL (2.0-7.7); Basophil# 0.05 X10^3/uL; Basophil% 0.8 % (0-1); Eosinophil# 0.32 X10^3/uL; Eosinophils% 5.3 % (0-5); Hematocrit 47.4 % (37-47); Hemoglobin 15.1 g/dL (12.0-15.0); Lymphocyte # 1.56 X10^3/ul (0.83-4.51); Mean Corp Hgb Conc 31.9 g/dL (32-36); Mean Corpuscular Hgb 28.6 pg (27.0-32.0); Mean Corpuscular Volume 89.8 fL (81-99); Mean Platelet Vol. 11.2 fl (6.2-12.0); Monocyte# 0.68 X10^3/uL; Monocyte% 11.4 % (0-10); NRBC Flagged by Analyzer 0 % (0-5); Neutrophil # 3.35 X10^3/uL (2.7-7.7); Platelet Count 210 K/mm3 (150-450); RBC Distribution Width CV 19.2 % (11.6-14.6); RBC Distribution Width SD 62.4 fl (35.1-43.9); Red Blood Count 5.28 M/mm3 (4.2-5.4)
[2024-01-19 12:43] LABS: ALB/GLOB Ratio 1.2 RATIO (0.9-2.4); AST(SGOT) 30 U/L (15-37); Alanine Aminotransfer ALT/SGPT 43 U/L (13-56); Albumin, Serum 3.8 g/dL (3.2-5.0); Alkaline Phosphatase 101 U/L (45-117); Anion Gap 4 (5-15); BUN 30 mg/dL (7-18); BUN/Creat Ratio 34.2 RATIO (10-20); Calcium,Total 9.3 mg/dL (8.5-10.1); Chloride 109 mmol/L (98-107); Cholesterol 209 mg/dL (200); Creatinine, Serum 0.88 mg/dL (0.55-1.02); EST Glomerular Filtration Rate 68 mL/min (>60); Est Glom Filt Rate - Afr Amer 82 mL/min (>60); Globulin 3.3 g/dL (2.2-4.2); Glucose 94 mg/dL (74-106); High Density Lipoprotein 68 mg/dL; Potassium 3.9 mmol/L (3.5-5.1); Protein, Total 7.1 g/dL (6.4-8.2); Sodium Level 142 mmol/L (136-145); T4 Free Direct 0.83 ng/dL (0.76-1.46); Thyroid Stim Hormone (TSH) 5.23 uIU/mL (0.358-3.74); Triglycerides 111 mg/dL; Very Low Density Lipoprotein 22 mg/dL (5-40)
== END | disposition home or self-care (01) ==
LOC: BFHLAB 10:30
PROVIDERS: PCP Family Medicine; Visit Provider Family Medicine
DX: E78.5 Hyperlipidemia, unspecified (principal); D50.9 Iron deficiency anemia, unspecified; R10.9 Unspecified abdominal pain; R63.4 Abnormal weight loss
CPT/HCPCS: 36415; 80053; 80061; 84439; 84443; 85025

== ENCOUNTER → 2024-02-03 | Outpatient (CLI) | payer MEDICARE, SELFPAY ==
--- NOTE | 2024-02-03 13:45 | CT_ITS ---
STUDY: LOW DOSE CT LUNG CANCER SCREENING REASON FOR EXAM: Female, 68 years old. and gt;20 pk yr hx; former smoker; asymptomatic RADIATION DOSAGE (If Supplied By Facility): CTDIvol = ( 1.59 ) mGy, DLP = ( 54.80 ) mGycm TECHNIQUE: No contrast was administered. Low dose technique was utilized (average mAS-38 and kVp 120). 1.25 mm axial source images with a slice interval of 1.25-mm were reconstructed in lung windows. 2.5 mm axial source images with a slice interval of 2.5-mm were reconstructed in lung windows. 5.0 mm axial source images with a slice interval of 5.0-mm were reconstructed in soft tissue windows. COMPARISON: Comparison is made with prior study dated January 28, 2023. NODULES: No suspicious nodules are seen. Emphysema: Hyperinflation. Mild degree of emphysematous changes more prominent in the upper lobes. Scarring at the lung bases as well as in the anterior medial aspect of the lingular segment of the left upper lobe. Mild residual changes persist in the anterior medial aspect of the right middle lobe although there has been improvement as compared to prior study. Endobronchial lesion: Unremarkable Aorta: Atherosclerotic plaque formation of the aortic arch. CORONARY ARTERIES: Coronary artery calcification is seen. Heart: Unremarkable Pulmonary artery: Unremarkable Mediastinal nodes: Unremarkable Other chest and abdominal findings: Stable bilateral breast prostheses. CT/Low Dose CT Lung Screening IMPRESSION: Lung-RADS category 2 - Continue annual screening with LDCT in 12 months. IMPORTANT NOTES FOR USE: ACR Lung-RADS Version 1.1 Assessment Categories Release Date: 2018 Category: Coded 0-4 bases on nodule(s) with highest degree of suspicion. Negative screen is defined as categories 1 and 2; a positive screen is defined as categories 3 and 4. Category 3 and 4A nodules that are unchanged on interval CT should be coded as category 2, and individuals returned to screening in 12 months. Category 4X: Category 3 or 4 nodules with additional imaging findings that increase the suspicion of lung cancer, such as spiculation, GGN that doubles in size in 1 year, enlarged lymph notes, etc. Category Modifiers: S (significant finding unrelated to lung cancer) Electronically Signed: César hC MD at 14:43 EDT ,
== END | disposition home or self-care (01) ==
LOC: CT 13:44
PROVIDERS: PCP Family Medicine; Referring Provider Nurse Practitioner Family; Visit Provider Nurse Practitioner Family
DX: Z12.2 Encounter for screening for malignant neoplasm of respiratory organs (principal); Z87.891 Personal history of nicotine dependence
CPT/HCPCS: 71271

== ENCOUNTER → 2024-02-05 | Outpatient (CLI) | payer MEDICARE, SELFPAY ==
--- NOTE | 2024-02-05 12:23 | BI_ITS ---
MAMMOGRAPHY - BILATERAL SCREENING REASON FOR EXAM: Female, 68 years old. Routine annual screening examination. PERTINENT HISTORY: Non-contributory. Bilateral breast implants. TECHNIQUE: Digital bilateral breast bill (3D mammographic acquisition) in the CC and MLO projections. 2-D mediolateral oblique (MLO) and craniocaudad (CC) views of both breasts were obtained. CAD: Full Field Digital Mammography with Computer Added Detection was performed. COMPARISON: Comparison is made with prior study January 28, 2023 and December 05, 2021. FINDINGS: Breast Composition: There are scattered areas of fibroglandular density. Stable well-defined 1.5 cm x 1.6 cm nodule in the deep upper outer quadrant of the left breast. From prior sonogram, this was to be a cyst. Stable appearance of the bilateral breast implants. No other significant abnormalities are identified. There has been no significant change since the prior study. BI/SCRN MAMM (CAD)W/BILL BILAT IMPRESSION: Stable bilateral screening mammogram. Yearly follow-up mammogram recommended. (A) ASSESSMENT CATEGORY: BIRADS Category 2: Benign. A letter regarding these results will be sent to the patient by the facility within 30 days. Approximately 10% of breast cancers are not detected by mammography. A normal mammogram should not delay biopsy of a clinically suspicious abnormality. [id number] Electronically Signed: César Ch MD at 13:27 EDT ,
== END | disposition home or self-care (01) ==
LOC: OPBI 12:22
PROVIDERS: PCP Family Medicine; Referring Provider Family Medicine; Visit Provider Family Medicine
DX: Z12.31 Encounter for screening mammogram for malignant neoplasm of breast (principal)
CPT/HCPCS: 77063; 77067

== ENCOUNTER → 2024-07-02 | Outpatient (CLI) | payer MEDICARE, SELFPAY ==
--- NOTE | 2024-07-02 13:50 | ECHOD_ITS ---
Reason For Study: MR, Dilated Ao root Procedure This was a 2D Doppler, Color Flow transthoracic echocardiogram. Exam performed in department. Left Ventricle Normal size and thickness. The left ventricular ejection fraction is 65 %. Stage 1 diastolic dysfunction. Right Ventricle Normal right ventricle. Atria There is mild biatrial dilatation. Mitral Valve Mild (1+) mitral valve insufficiency. Tricuspid Valve Trivial tricuspid valve insufficiency. Normal pulmonary artery pressure. Aortic Valve Trisinus/trileaflet aortic valve. Mild (1+) aortic valve insufficiency. Pulmonic Valve The pulmonic valve is not well visualized. Mild (1+) pulmonic valve insufficiency. Great Vessels The coronary sinus appears dilated. Recommend CT scan for further evaluation. Pericardium/Pleural No pericardial effusion. MMode/2D Measurements & Calculations RVDd: 3.7 cm LVOT diam: 2.4 cm asc Aorta Diam: 3.4 cm LVOT area: 4.6 cm2 LAV(MOD-bp): 48.3 ml LVAd ap4: 20.9 cm2 LVAd ap2: 19.4 cm2 LAV(MOD-bp) Indexed: 24.1 ml/m2 LVLd ap4: 7.5 cm LVLd ap2: 7.0 cm LAV(MOD-sp2): 39.5 ml EDV(MOD-sp4): 49.4 ml EDV(MOD-sp2): 46.1 ml LAV(MOD-sp4): 59.0 ml EDV(sp4-el): 49.6 ml EDV(sp2-el): 45.9 ml LVAs ap4: 10.3 cm2 LVAs ap2: 8.9 cm2 LVLs ap4: 6.1 cm LVLs ap2: 6.2 cm ESV(MOD-sp4): 15.0 ml ESV(MOD-sp2): 11.7 ml ESV(sp4-el): 14.7 ml ESV(sp2-el): 10.8 ml EF(MOD-sp4): 69.6 % EF(MOD-sp2): 74.5 % EF(sp4-el): 70.4 % SV(MOD-sp4): 34.4 ml SV(MOD-sp2): 34.4 ml SV(sp4-el): 34.9 ml Ao sinus diam: 4.[address] Junction: 3.2 cm LA A4 area: 20.2 cm2 LA dimension(2D): 2.8 cm TAPSE: 2.9 cm RA A4 area: 17.3 cm2 Time Measurements MV dec time: 0.26 sec Doppler Measurements & Calculations MV E max dexter: 64.0 cm/sec Lat Peak E' Dexter: 6.0 cm/sec Med Peak E' Dexter: 6.8 cm/sec MV A max dexter: 97.4 cm/sec E/E' lat: 10.7 E/E' med: 9.4 MV E/A: 0.66 MV dec slope: 245.8 cm/sec2 Ao V2 max: 129.5 cm/sec AI max dexter: 368.5 cm/sec Ao max P.7 mmHg AI max P.3 mmHg ANTHONY(V,D): 3.7 cm2 AI dec slope: 186.0 cm/sec2 AI P1/2t: 580.4 msec LV V1 max: 104.0 cm/sec PA V2 max: 83.1 cm/sec TR max dexter: 244.6 cm/sec LV V1 max P.3 mmHg TR max P.9 mmHg ECHO/Echo Complete Interpretation Summary The left ventricular ejection fraction is 65 %. Stage 1 diastolic dysfunction. There is mild biatrial dilatation. Mild (1+) mitral valve insufficiency. Mild (1+) aortic valve insufficiency. Mild (1+) pulmonic valve insufficiency. The coronary sinus appears dilated. Recommend CT scan for further evaluation. Ordering Physician: Any Velásquez Referring Physician: Ana Massey Performed By: Courtney Villar RDCS
== END | disposition home or self-care (01) ==
LOC: CVS 13:48
PROVIDERS: PCP Family Medicine; Referring Provider Nurse Practitioner Gerontology; Visit Provider Nurse Practitioner Gerontology
DX: I34.0 Nonrheumatic mitral (valve) insufficiency (principal); I77.810 Thoracic aortic ectasia
CPT/HCPCS: 93306

== ENCOUNTER → 2024-07-30 | Outpatient (CLI) | payer MEDICARE, SELFPAY ==
--- NOTE | 2024-07-30 08:26 | CT_ITS ---
STUDY: CTA CHEST REASON FOR EXAM: Female, 69 years old. Atypical chest pain, possible dilated coronary sinus RADIATION DOSAGE (If Supplied By Facility): CTDIvol = ( 18.51 ) mGy, DLP = ( 290.62 ) mGycm TECHNIQUE: The examination was performed with the intravenous administration of IV 100mL Isovue-370. Post-processing of the angiographic images was performed, with multiplanar reformation and 3D reconstruction. Individualized dose optimization techniques were used for this CT. COMPARISON: 02/03/2024 FINDINGS: On axial images 60 through 78, there is evidence of a dilated coronary sinus. It measures approximately 1.5 cm, upper limits of normal is 0.9 cm. There is no evidence of thrombus within the coronary sinus. Normal enhancement of the main pulmonary artery and right and left pulmonary arteries. Normal enhancement of the bilateral peripheral pulmonary arteries. There is no demonstrated pulmonary embolism. Normal thoracic aorta and visualized great vessels. There is no demonstrated aortic dissection. Normal heart and pericardium. No coronary artery calcification is noted Normal mediastinum. Normal hilar regions. Normal visualized trachea and bronchi. The lungs are well expanded. Chronic interstitial changes in both lung barnes with fibrotic scarring in the lingula. No organized infiltrate, effusion, or suspicious noncalcified mass or nodule, emphysematous blebs noted in both upper lobes. Normal pleura. Normal chest wall structures. There are degenerative changes of thoracic spine. Limited cuts through the upper abdomen do not show suspicious solid organ abnormality, there is a simple right renal cyst, no specific follow-up needed. Bilateral breast implants are intact and free of complication. CT/CTA Chest W/WO Contrast IMPRESSION: No demonstrated PE, or thoracic aortic aneurysm or dissection Chronic interstitial changes in both lung barnes without a superimposed acute pulmonary process Mildly dilated coronary sinus up to 1.5 cm. Upper limits of normal is 0.9 cm. There is no evidence of thrombus within the coronary sinus. Electronically Signed: Boo Cruz MD at 9:20 EDT ,
[2024-07-30 08:53] LABS: CREATININE FINGERSTICK < 1.0 mg/dL (0.55-1.02); EGFR FINGERSTICK > 60.0000 mL/min (>60)
== END | disposition home or self-care (01) ==
LOC: CT 08:25
PROVIDERS: PCP Family Medicine; Referring Provider Nurse Practitioner Gerontology; Visit Provider Nurse Practitioner Gerontology
DX: I77.810 Thoracic aortic ectasia (principal)
CPT/HCPCS: 71275; Q9967

== ENCOUNTER → 2024-11-16 | Outpatient (CLI) | payer MEDICARE, SELFPAY ==
[2024-11-16 16:58] LABS: Absolute Lymphocyte Count 0.81 X10^3/uL (0.83-4.51); Absolute Neutrophil Count 13.3 X10^3/uL (2.0-7.7); Basophil# 0.02 X10^3/uL; Basophil% 0.1 % (0-1); Hematocrit 40.9 % (37-47); Hemoglobin 12.5 g/dL (12.0-15.0); Lymphocyte # 0.81 X10^3/ul (0.83-4.51); Lymphocyte % 5.5 % (19-41); Mean Corp Hgb Conc 30.6 g/dL (32-36); Mean Corpuscular Volume 91.7 fL (81-99); Mean Platelet Vol. 11.2 fl (6.2-12.0); Monocyte# 0.34 X10^3/uL; Monocyte% 2.3 % (0-10); NRBC Flagged by Analyzer 0 % (0-5); Neutrophil # 13.25 X10^3/uL (2.7-7.7); Neutrophil % 90.1 % (47-70); Platelet Count 308 K/mm3 (150-450); RBC Distribution Width CV 13.1 % (11.6-14.6); RBC Distribution Width SD 43.7 fl (35.1-43.9); Red Blood Count 4.46 M/mm3 (4.2-5.4); White Blood Count 14.7 K/mm3 (4.4-11.0)
[2024-11-16 17:37] LABS: ALB/GLOB Ratio 1.1 RATIO (0.9-2.4); AST(SGOT) 18 U/L (15-37); Alanine Aminotransfer ALT/SGPT 27 U/L (13-56); Albumin, Serum 4.1 g/dL (3.2-5.0); Alkaline Phosphatase 118 U/L (45-117); Anion Gap 8 (5-15); BUN 44 mg/dL (7-18); BUN/Creat Ratio 27.5 RATIO (10-20); Calcium,Total 9.8 mg/dL (8.5-10.1); Chloride 106 mmol/L (98-107); EST Glomerular Filtration Rate 34 mL/min (>60); Est Glom Filt Rate - Afr Amer 41 mL/min (>60); Globulin 3.9 g/dL (2.2-4.2); Glucose 107 mg/dL (74-106); Potassium 3.8 mmol/L (3.5-5.1); Sodium Level 136 mmol/L (136-145); T4 Free Direct 0.78 ng/dL (0.76-1.46)
== END | disposition home or self-care (01) ==
LOC: BFHLAB 15:50
PROVIDERS: PCP Family Medicine; Visit Provider Family Medicine
DX: E03.8 Other specified hypothyroidism (principal); G62.9 Polyneuropathy, unspecified; D50.9 Iron deficiency anemia, unspecified; B35.1 Tinea unguium
CPT/HCPCS: 36415; 80053; 84439; 84443; 85025

== ENCOUNTER → 2024-11-19 | Outpatient (CLI) | payer MEDICARE, SELFPAY ==
[2024-11-19 15:53] LABS: Red Blood Cells-Urine 0 SEEN /hpf (0-5)
[2024-11-19 17:47] LABS: Color, Urine Yellow (Yellow); Glucose, Dipstick Normal (Normal); Ketone-Dipstick Negative (Negative); Leukocyte Esterase-Dipstick 500 /ul (Negative); Nitrite-Dipstick Negative (Negative); Occult Blood-Urine 10 /ul (Negative); Protein-Dipstick 15 mg/dl (Negative); Specific Gravity, Urine 1.025 (1.002-1.030); Urine Bilirubin Dipstick Negative (Negative); Urine Clarity Clear (Clear); Urine Urobilinogen Normal (Normal)
[2024-11-19 18:01] LABS: Protein, Urine (Random) 33.4 mg/dL (<11.9); Protein:Creat Ratio 165 mg/g CRE (0-200)
[2024-11-19 18:13] LABS: Bacteria 1+ /hpf (None Seen); Mucous, Urine 1+ /hpf (<or=2+); Squamous Epithelial Cells - UA 0-5 SEEN /hpf (5-10); White Blood Cells 0-5 SEEN /hpf (0-5)
[2024-11-22 11:07] LABS: ANTINUCLEAR ANTIBODIES DIRECT Negative (Negative)
[2024-11-23 16:08] LABS: PROEL- A/G Ratio 1.2 (0.7-1.7); PROEL- Albumin 3.7 g/dL (2.9-4.4); PROEL- Alpha-1 Globulin 0.2 g/dL (0.0-0.4); PROEL- Alpha-2 Globulin 0.7 g/dL (0.4-1.0); PROEL- Beta Globulin 1.3 g/dL (0.7-1.3); PROEL- Gamma Globulin 0.8 g/dL (0.4-1.8); PROEL- Globulin, Total 3.1 g/dL (2.2-3.9); PROEL- TOTAL PROTEIN 6.8 g/dL (6.0-8.5); PROEL-M-Spike Not Observed g/dL (Not Observed); PROELU- Albumin, Urine 36.1 % (.); PROELU- Alpha-1-Globulin,Ur 1.5 % (.); PROELU- Alpha-2-Globulin,Ur 21.7 % (.); PROELU- Beta Globulin, Ur 26.1 % (.); PROELU- Gamma Globulin, Ur 14.6 % (.); Total Protein, Ur 21.2 mg/dL (Not Estab.)
== END | disposition home or self-care (01) ==
LOC: BFHLAB 15:47
PROVIDERS: PCP Family Medicine; Visit Provider Family Medicine
DX: N05.9 Unspecified nephritic syndrome with unspecified morphologic changes (principal)
CPT/HCPCS: 36415; 81001; 81002; 82570; 84156; 84165; 84166; 86038

== ENCOUNTER → 2024-11-25 | Outpatient (CLI) | payer MEDICARE, SELFPAY ==
--- NOTE | 2024-11-25 12:11 | US_ITS ---
EXAM: US Retroperitoneal Limited, Renal CLINICAL INDICATION: TECHNIQUE: Real-time limited ultrasound of the retroperitoneum with image documentation. COMPARISON: No relevant prior studies available. FINDINGS: RIGHT KIDNEY: Right simple renal cyst measuring up to 2.1 cm. No stones. No hydronephrosis. The right kidney measures 11.8 x 5.3 x 5.1 cm. LEFT KIDNEY: Unremarkable. No stones. No hydronephrosis. The left kidney measures 12.6 x 4.5 x 5.1 cm. OTHER FINDINGS: Prevoid volume 66 cc. US/Kidney and Bladder IMPRESSION: No acute findings in the retroperitoneum. Reading Location[facility]
== END | disposition home or self-care (01) ==
PROVIDERS: PCP Family Medicine; Referring Provider Family Medicine; Visit Provider Family Medicine
DX: N18.32 Chronic kidney disease, stage 3b (principal)
CPT/HCPCS: 76770

== ENCOUNTER → 2024-11-26 | Outpatient (CLI) | payer MEDICARE, SELFPAY ==
[2024-11-26 18:09] LABS: Anion Gap 7 (5-15); BUN 27 mg/dL (7-18); Calcium,Total 9.1 mg/dL (8.5-10.1); Chloride 107 mmol/L (98-107); Creatinine, Serum 0.82 mg/dL (0.55-1.02); EST Glomerular Filtration Rate 73 mL/min (>60); Est Glom Filt Rate - Afr Amer 89 mL/min (>60); Glucose 85 mg/dL (74-106); Potassium 3.6 mmol/L (3.5-5.1); Sodium Level 139 mmol/L (136-145)
== END | disposition home or self-care (01) ==
LOC: BFHLAB 15:49
PROVIDERS: PCP Family Medicine; Visit Provider Family Medicine
DX: G25.81 Restless legs syndrome (principal)
CPT/HCPCS: 36415; 80048

== ENCOUNTER 2024-12-20 11:29 | Emergency (ER) | payer MEDICARE, OTHER, SELFPAY ==
[2024-12-20 11:31] VITALS: BP 116/79; PULSE 81; RESP 16; TEMP 36.7; O2SAT 98
--- NOTE | 2024-12-20 12:12 | RAD_ITS ---
EXAM: XR Left Knee Complete, 4 or More Views CLINICAL INDICATION: TECHNIQUE: Four or more views of the left knee. COMPARISON: No relevant prior studies available. FINDINGS: BONES/JOINTS: Unremarkable. No acute fracture. No dislocation. SOFT TISSUES: Unremarkable. RAD/Knee 4 or More Views IMPRESSION: No acute fracture. Reading Location[facility]
--- NOTE | 2024-12-20 12:12 | CT_ITS ---
EXAM: CT Head Without Intravenous Contrast CLINICAL INDICATION: TECHNIQUE: Axial computed tomography images of the head/brain without intravenous contrast. This CT exam was performed using one or more of the following dose reduction techniques: automated exposure control, adjustment of the mA and/or kV according to patient size, and/or use of iterative reconstruction technique. COMPARISON: No relevant prior studies available. FINDINGS: BRAIN AND EXTRA-AXIAL SPACES: Subtle hyperdensity of the left corpus callosum could be hemorrhage or underlying mass. Further evaluation with MRI with and without contrast is recommended. Mild areas of decreased attenuation in the deep cerebral white matter are consistent with mild small vessel ischemic/degenerative changes. BONES/JOINTS: Unremarkable. No acute fracture. SOFT TISSUES: Unremarkable. SINUSES: Unremarkable as visualized. No acute sinusitis. MASTOID AIR CELLS: Unremarkable as visualized. No mastoid effusion. CT/Brain/Head without Contrast IMPRESSION: 1. Subtle hyperdensity of the left corpus callosum could be hemorrhage or unde rlying mass. Further evaluation with MRI with and without contrast is recommended. 2. Mild small vessel ischemic/degenerative changes. Findings were discussed with Mitzy MCCABE by phone on 12/20/2024 at 1258 h ours. Reading Location[facility]
--- NOTE | 2024-12-20 12:13 | ED.VIS.FALL ---
HPI <ESTELLE Royal - Last Filed: 12/20/24 17:58> HPI - Fall History of Present Illness Chief Complaint: Fall Narrative Narrative: 69-year-old female states around 8 AM she stepped backwards and tripped on a mat causing her to fall. She hit the top of her head and in trying to protect her head she also landed on her left knee. She denies loss of consciousness. She has had a mild headache but felt nauseated prior to arrival. No vomiting. No visual changes or focal motor or sensory changes. She is ambulatory. She is on aspirin 81 mg. No blood thinners. [facility] <ESTELLE Royal - Last Filed: 12/20/24 17:58> [facility] Medical History (Updated 12/20/24 @ 17:22 by ESTELLE Royal) History of tobacco use Encounter for screening for malignant neoplasm of lung in patient with less than 30 pack year smoking history Mitral regurgitation Weight loss LUQ abdominal pain Abdominal pain Elevated TSH Lightheadedness Nicotine dependence Dyspnea on exertion Abnormal electrocardiogram [ECG] [EKG] Tachycardia Palpitations Peripheral neuropathy Pseudoseizures Hearing loss Arthritis Atrial flutter Complex renal cyst Iron deficiency anemia Restless leg syndrome Home Medications ?Medication ?Instructions ?Recorded ?Last Taken ?Type gabapentin 300 mg capsule 300 mg PO QHS 10/30/22 Unknown History aspirin 81 mg tablet,delayed 81 mg PO DAILY #90 tabs 05/07/24 Unknown Rx release diltiazem HCl 120 mg 120 mg PO DAILY 06/14/24 Unknown History capsule,extended release 24 hr melatonin 10 mg capsule 10 mg PO HS PRN 12/14/24 Unknown History terbinafine HCl 250 mg tablet 250 mg PO QDAY 12/14/24 Unknown History gabapentin 100 mg capsule 1 PO BID 12/20/24 Unknown History Allergy/AdvReac Type Severity Reaction Status Date / Time Penicillins Allergy Severe Shortness Verified 12/20/24 11:31 of breath bee venom protein (honey bee) Allergy Intermediate Other Verified 12/20/24 11:31 Sulfa (Sulfonamide Allergy Intermediate Itching Verified 12/20/24 11:31 Antibiotics) chocolate flavor Allergy Mild Other Verified 12/20/24 11:31 nut - unspecified AdvReac Unknown Other Verified 12/20/24 11:31 Family History Other Anemia Arthritis Asthma Breast cancer CVA (cerebral vascular accident) Cervical cancer Depression Heart disease Hypercholesterolemia Hypertension Kidney disease Liver disease Myocardial infarction Ovarian cancer Surgical History Hx of breast implants, bilateral History of bunionectomy (~2018) History of partial hysterectomy (~1981) Hx of cholecystectomy (~1972) Social History Smoking Status: Former smoker Tobacco: How many years used: 53 alcohol intake: former details: none now substance use type: former substance user Date of last use: sober 34 years and crack/cocaine caffeine: Yes Type: coffee Number of servings: 1 ROS <ESTELLE Royal - Last Filed: 12/20/24 17:58> ROS ED ROS Narrative Eyes: Negative for visual change. GI: Positive for nausea. No vomiting. Neuro: Negative for motor/sensory dysfunction. Musc: Positive for left knee pain, swelling, trauma. EXAM <ESTELLE Royal - Last Filed: 12/20/24 17:58> Physical Exam Narrative Exam Narrative: CONST: Patient sitting in no acute distress. EYES: Normal inspection. ENT: Small hematoma on vertex/occiput region, no raccoon eyes or smith sign,no nasal septal hematoma, no CSF otorrhea or rhinorrhea. NECK: Normal inspection. No midline spinal tenderness, no step off or crepitus. RESP: No respiratory distress, CTAB. CVS: Regular rate and rhythm, no murmur, no gallop. Back: Normal inspection, no midline tenderness. SKIN: Color normal, no rash, warm, dry, intact. EXTREMITIES: Slight swelling and tenderness over the lateral left knee, normal extension, negative anterior and posterior drawer, negative varus and valgus stress. There is also swelling around the left ankle without any bony tenderness of the lower leg ankle or foot. 2+ DP pulse. No tenderness of right lower extremity. Full range of motion upper extremities, nontender, 2+ radial pulses. NEURO: Alert and answering questions appropriately. PSYCH: Normal affect. Const Vital Signs: 12/20/24 11:31 12/20/24 12:15 12/20/24 13:30 Temperature 98.1 F Temperature Source Oral Pulse Rate 81 85 Respiratory Rate 16 18 Respiratory Effort Normal Non-Labored Respiratory Depth Normal Respiratory Pattern Normal Blood Pressure 116/79 Blood Pressure Mean 91 Pulse Ox 98 97 Oxygen Delivery Method Room Air Room Air Room Air 12/20/24 16:32 Temperature Temperature Source Pulse Rate 71 Respiratory Rate 18 Respiratory Effort Respiratory Depth Respiratory Pattern Blood Pressure Blood Pressure Mean Pulse Ox 98 Oxygen Delivery Method Room Air <Dr. Luke Schumacher MD - Last Filed: 12/20/24 15:09> Physical Exam Const Vital Signs: 12/20/24 11:31 12/20/24 12:15 12/20/24 13:30 Temperature 98.1 F Temperature Source Oral Pulse Rate 81 85 Respiratory Rate 16 18 Respiratory Effort Normal Non-Labored Respiratory Depth Normal Respiratory Pattern Normal Blood Pressure 116/79 Blood Pressure Mean 91 Pulse Ox 98 97 Oxygen Delivery Method Room Air Room Air Room Air 12/20/24 16:32 Temperature Temperature Source Pulse Rate 71 Respiratory Rate 18 Respiratory Effort Respiratory Depth Respiratory Pattern Blood Pressure Blood Pressure Mean Pulse Ox 98 Oxygen Delivery Method Room Air MDM <ESTELLE Royal - Last Filed: 12/20/24 17:58> [facility] Narrative Medical decision making narrative: History gathered from: Patient and family member Differential includes but not limited to head injury, intracranial hemorrhage 69-year-old female had a mechanical fall this morning with closed head injury without LOC. No blood thinners. Presents with a mild headache, nausea, and pain in her left knee. She is ambulatory. She is awake and alert. GCS 15. Vital signs stable. She has a small hematoma on the back of her head without abrasion, laceration or crepitus. No signs of basilar skull fracture. No cervical tenderness. She is neurologically intact with no deficits. She is tenderness over the left lateral and posterior knee. Extension is normal. MSPs intact. Initially CT brain and left knee x-ray were ordered; patient also complained of left popliteal pain over the last week prior to this injury so an ultrasound was ordered to rule out DVT. Left knee x-ray is negative and left duplex ultrasound is negative for DVT. The radiologist called regarding the CT brain and states there is a hyperdensity in the left corpus callosum which could be hemorrhage or underlying mass. He recommended an MRI with and without contrast for further evaluation. 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 Patient's neurological exam remains normal and I think this is an incidental finding. Regarding her workplace injury, she is having pain in the left knee with ambulation and was given 5 days of restrictions for limited standing, bending, and kneeling until follow-up with occupational health. She was discharged in stable condition. Lab Data Attestation: I reviewed the patient's lab results. Labs: Laboratory Results - last 24 hr 12/20/24 13:35 WBC 7.0 RBC 4.33 Hgb 12.2 Hct 39.2 MCV 90.5 MCH 28.2 MCHC 31.1 L RDW Std Deviation 45.1 H RDW Coeff of Jon 13.6 Plt Count 308 MPV 10.3 Immature Gran % (Auto) 0.400 Neut % (Auto) 70.2 H Lymph % (Auto) 16.5 L [place] % (Auto) 10.6 H Eos % (Auto) 1.4 Baso % (Auto) 0.9 Absolute Neuts (auto) 4.9 Absolute Lymphs (auto) 1.15 Nucleated RBC % 0 Sodium 137 Potassium 4.3 Chloride Direct 103 Carbon Dioxide 23.4 Anion Gap 10 BUN 24 H Creatinine 0.87 Est GFR (MDRD) Non-Af 71 BUN/Creatinine Ratio 27.1 H Glucose 90 Calcium 9.5 Radiography Diagnostic Testing: Clinical Impression(s) from Imaging Studies Brain CT 12/20/24 12:12 IMPRESSION: 1. Subtle hyperdensity of the left corpus callosum could be hemorrhage or underlying mass. Further evaluation with MRI with and without contrast is recommended. 2. Mild small vessel ischemic/degenerative changes. Findings were discussed with Mitzy MCCABE by phone on 12/20/2024 at 1258 hours. Reading Location: [facility] Knee X-Ray 12/20/24 12:12 IMPRESSION: No acute fracture. Reading [facility] Brain MRI 12/20/24 13:06 IMPRESSION: 1. 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 2. Mild chronic small vessel ischemic disease. Reading Location: [facility] ED attending interpretation of left knee shows no fracture or dislocation. <Dr. Luke Schumacher MD - Last Filed: 12/20/24 15:09> [facility] Lab Data Labs: Laboratory Results - last 24 hr 12/20/24 13:35 WBC 7.0 RBC 4.33 Hgb 12.2 Hct 39.2 MCV 90.5 MCH 28.2 MCHC 31.1 L RDW Std Deviation 45.1 H RDW Coeff of Jon 13.6 Plt Count 308 MPV 10.3 Immature Gran % (Auto) 0.400 Neut % (Auto) 70.2 H Lymph % (Auto) 16.5 L [place] % (Auto) 10.6 H Eos % (Auto) 1.4 Baso % (Auto) 0.9 Absolute Neuts (auto) 4.9 Absolute Lymphs (auto) 1.15 Nucleated RBC % 0 Sodium 137 Potassium 4.3 Chloride Direct 103 Carbon Dioxide 23.4 Anion Gap 10 BUN 24 H Creatinine 0.87 Est GFR (MDRD) Non-Af 71 BUN/Creatinine Ratio 27.1 H Glucose 90 Calcium 9.5 Radiography Diagnostic Testing: Clinical Impression(s) from Imaging Studies Brain CT 12/20/24 12:12 IMPRESSION: 1. Subtle hyperdensity of the left corpus callosum could be hemorrhage or underlying mass. Further evaluation with MRI with and without contrast is recommended. 2. Mild small vessel ischemic/degenerative changes. Findings were discussed with Mitzy MCCABE by phone on 12/20/2024 at 1258 hours. Reading Location: [facility] Knee X-Ray 12/20/24 12:12 IMPRESSION: No acute fracture. Reading Location: [facility] Brain MRI 12/20/24 13:06 IMPRESSION: 1. 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 2. Mild chronic small vessel ischemic disease. Reading Location: [facility] Treatment and Re-Evaluation Narrative: I have personally performed a face to face assessment of the patient and have reviewed the OSWALDO Note. I performed a substantive portion of the visit including all aspects of the following. My garrett findings include: History is at work tripped on a mat while taking a step backward, falling and hitting the back of her head and also against the left kneecap. Right now she states her knee is hurting worse than her head. She denies any vomiting. She is not anticoagulated. No focal neurologic symptoms. No other injuries. She has been having some chronic discomfort in her knee, some of it is popliteal, she states she had a cortisone injection in her knee that helped some. Exam is limited knee range of motion due to pain, all ligaments are stable with short endpoints on stressing. There is no effusion. Diffuse anterior and lateral tenderness. No deformities. Neurovascular intact distally. Some swelling about the left ankle that is new according to the patient and no other edema, she has no significant bony tenderness throughout the foot or ankle, and no significant discomfort with forced passive inversion of the foot, nor instability. No scalp hematoma, crepitance, or depression. No Smith sign, raccoon eyes, CSF otorhinorrhea. Pleasant, GCS 15 normal neurologic exam. No other injuries. Medical Decison Making I reviewed the CT images and the result which I agree with. There is an abnormal area that would be a very unusual location for a bleed, but radiology understandably recommending an MRI to rule this out given acute injury. This is pending. 4 view x-rays of the left knee on my interpretation is negative for acute fracture or dislocation. Other additions or changes: [None] Discharge Plan Triage Chief Complaint: Fall ED Midlevel Provider: Mitzy Brunson ED Provider: Luke Schumacher Dx/Rx/DC Orders Clinical Impression: Fall, Cavernoma, Contusion of left knee, Head injury, closed, without LOC Instructions: ED Head Injury (Adult) Prescriptions: No Action gabapentin 300 mg capsule 300 mg PO QHS diltiazem HCl 120 mg capsule,extended release 24hr 120 mg PO DAILY terbinafine HCl 250 mg tablet 250 mg PO QDAY melatonin 10 mg capsule 10 mg PO HS PRN gabapentin 100 mg capsule 1 PO BID aspirin 81 mg tablet,delayed release (DR/EC) 81 mg PO DAILY Qty: 90 3RF Primary Care Provider: Ana Massey Referrals: [facility] [Group of Physicians] - Ana Massey MD [Primary Care Provider] - Activity Restrictions/Additional Instructions: Your MRI showed an area in your brain called a cavernoma which is an abnormal cluster of blood vessels. This is not related to your fall. It is likely something you have had for a long time and was found incidentally. If you have a headache secondary to your fall I recommend Tylenol or Motrin. If you develop a severe headache or vomiting or confusion come back for reevaluation. Call [facility] for follow-up appointment. Print Language: Yoruba Disposition Disposition: Home, Self Care Discharge Date/Time: 12/20/24 17:55
--- NOTE | 2024-12-20 12:42 | VDLE_ITS ---
Reason For Study Reason For Study: LLE Pain RIGHT LEFT CFV is compressible, spontaneous, phasic, competent GSV is normal. and demonstrates normal augmentation. CFV is compressible, spontaneous, phasic, competent, Procedure and demonstrates normal augmentation. This is a venous duplex using B-mode, color flow and FV is compressible, spontaneous, phasic, competent spectral Doppler. and demonstrates normal augmentation. Exam performed portable in ED. POP V is compressible, spontaneous, phasic, competent The exam was diagnostic. and demonstrates normal augmentation. A preliminary report was called and/or faxed to Mitzy T/P Trunk is compressible. Nannette MCCABE. PTV is compressible. LT PerV is compressible. Incidental Finding - Non vascularized irregularly shaped area of mixed echoes noted in Lt Groin measuring approximately 5.28cm x 2.19cm. Unable to visualize flow in Pulsed Wave Doppler. VL/Venous Duplex US, Unilateral Interpretation Summary Deep veins of the left lower extremity are patent and compressible segmentally. There is no evidence of left lower extremity deep vein thrombosis. The left great saphenous vein appears patent an d compressible segmentally. Non vascularized irregularly shaped area of mixed echoes noted in left groin me asuring approximately 5.28cm x 2.19cm. No flow visualized Ordering Physician: Mitzy Brunson Referring Physician: Ana Massey Performed By: Andrea Donohue, RVT
[2024-12-20] MEDS: Acetaminophen 325 MG Tablet 650 MG PO (12:45)
--- NOTE | 2024-12-20 13:06 | MRI_ITS ---
PROCEDURE: BRAIN W/WO CONTRAST REASON FOR EXAM: Fall. Pain. Head. Headache. Nausea. TECHNIQUE: Multiplanar, multisequence MRI of the brain with and without intravenous gadolinium-based contrast. CONTRAST: 15 cc of Clariscan COMPARISON: CT brain from 12/20/2024. 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 There is an adjacent developmental venous anomaly. Brain volume is age-appropriate. The ventricles are not effaced or dilated. No midline shift, mass effect, or extra-axial fluid collections are identified. There are scattered foci of hyperintense T2/FLAIR signal in the periventricular and deep white matter likely relating to chronic small vessel ischemic disease. No diffusion restriction is identified on diffusion-weighted imaging to suggest acute/subacute ischemic changes. Optic chiasm, suprasellar cistern, and cerebellar tonsils are within normal range. Major vascular flow voids are present. There is bidirectional nasal septal deviation. Bilateral orbits are intact. MRI/Brain W/WO Contrast IMPRESSION: 1. Area of blooming measuring 14 mm along the genu of the corpus callosum as de scribed above likely relates to a cerebral cavernous venous malformation (cavernoma) with adjacent developmental venous an omaly. 2. Mild chronic small vessel ischemic disease. Reading Location: [facility]
[2024-12-20 13:30] VITALS: PULSE 85; RESP 18; O2SAT 97
[2024-12-20 13:45] LABS: Absolute Lymphocyte Count 1.15 X10^3/uL (0.83-4.51); Absolute Neutrophil Count 4.9 X10^3/uL (2.0-7.7); Basophil# 0.06 X10^3/uL; Basophil% 0.9 % (0-1); Eosinophils% 1.4 % (0-5); Hematocrit 39.2 % (37-47); Hemoglobin 12.2 g/dL (12.0-15.0); Lymphocyte # 1.15 X10^3/ul (0.83-4.51); Lymphocyte % 16.5 % (19-41); Mean Corp Hgb Conc 31.1 g/dL (32-36); Mean Corpuscular Hgb 28.2 pg (27.0-32.0); Mean Corpuscular Volume 90.5 fL (81-99); Mean Platelet Vol. 10.3 fl (6.2-12.0); Monocyte# 0.74 X10^3/uL; Monocyte% 10.6 % (0-10); NRBC Flagged by Analyzer 0 % (0-5); Neutrophil # 4.91 X10^3/uL (2.7-7.7); Neutrophil % 70.2 % (47-70); Platelet Count 308 K/mm3 (150-450); RBC Distribution Width CV 13.6 % (11.6-14.6); RBC Distribution Width SD 45.1 fl (35.1-43.9); Red Blood Count 4.33 M/mm3 (4.2-5.4)
[2024-12-20 14:16] LABS: Anion Gap 10 (5-15); BUN 24 mg/dL (4-19); BUN/Creat Ratio 27.1 RATIO (10-20); Calcium 9.5 mg/dL (7.6-11.0); Carbon Dioxide 23.4 mmol/L (22.0-29.0); Chloride 103 mmol/L (96-108); Creatinine, Serum 0.87 mg/dL (0.70-1.20); EST Glomerular Filtration Rate 71 (>60); Glucose 90 mg/dL (70-99); Potassium 4.3 mmol/L (3.3-5.1); Sodium Level 137 mmol/L (133-145)
[2024-12-20 16:32] VITALS: PULSE 71; RESP 18; O2SAT 98
== END 2024-12-20 18:28 | disposition home or self-care (01) ==
PROVIDERS: Physician Assistant; Emergency Provider Emergency Medicine; PCP Family Medicine; Visit Provider Emergency Medicine
DX: S09.90XA Unspecified injury of head, initial encounter (principal); Q28.3 Other malformations of cerebral vessels; S80.02XA Contusion of left knee, initial encounter; W01.0XXA Fall on same level from slipping, tripping and stumbling without subsequent striking against object, initial encounter; Z87.891 Personal history of nicotine dependence; Z90.710 Acquired absence of both cervix and uterus; Z90.49 Acquired absence of other specified parts of digestive tract; M25.562 Pain in left knee
CPT/HCPCS: 70450; 70553; 73564; 80048; 85025; 93971; 99282; A9575; A4216

== ENCOUNTER 2024-12-31 14:10 | Emergency (ER) | payer OTHER, MEDICARE, SELFPAY ==
[2024-12-31 14:11] VITALS: BP 123/97; PULSE 74; RESP 18; TEMP 37.2; O2SAT 98; BMI 23.3
--- NOTE | 2024-12-31 15:07 | VDLE_ITS ---
Reason For Study Reason For Study: Left leg pain RIGHT LEFT CFV is compressible, spontaneous, phasic, competent GSV is normal. and demonstrates normal augmentation. CFV is compressible, spontaneous, phasic, competent, Procedure and demonstrates normal augmentation. This is a venous duplex using B-mode, color flow and FV is compressible, spontaneous, phasic, competent spectral Doppler. and demonstrates normal augmentation. Exam performed portable in ED. POP V is compressible, spontaneous, phasic, competent A preliminary report was called and/or faxed to and demonstrates normal augmentation. Josh. T/P Trunk is compressible. PTV is compressible. LT PerV is compressible. Vascularized irregularly shaped area of mixed echoes noted in Lt Groin. VL/Venous Duplex US, Unilateral Interpretation Summary Deep veins of the left lower extremity are patent and compressible segmentally. There is no evidence of left lower extremity deep vein thrombosis. Valvular competence appears intact within the p roximal deep venous system on the left . The left great saphenous vein appears patent and compressible segmentally. A va scularized, irregular-shaped, heterogeneous structure is noted in the left groin. Clinical correlation is adv ised. The right common femoral vein is patent and compressible . Ordering Physician: Gary Moreno Referring Physician: Ana Massey Performed By: Yu Garnica RVT
--- NOTE | 2024-12-31 15:08 | EDS_ITS ---
HPI History of Present Illness Chief Complaint: Lower Extremity Injury Narrative Narrative: Patient is a 69-year-old female with past medical history of atrial flutter, iron deficiency anemia, started much regurgitation, cavernoma, tobacco use who presented to the emergency department who presented to the emergency department with a chief complaint of left lower extremity swelling and pain as well as left ankle pain. Patient states that she was here earlier in the month after a work- related injury and had a workup performed then including an ultrasound that did not show any blood clots. Patient states that she has not any new injuries or trauma no recent travels. Patient states that she woke up this morning and her left lower extremity was significantly more swollen than her right with this left ankle pain therefore she came here for the valuation management. [facility] Medical History History of tobacco use Encounter for screening for malignant neoplasm of lung in patient with less than 30 pack year smoking history Mitral regurgitation Weight loss LUQ abdominal pain Abdominal pain Elevated TSH Lightheadedness Nicotine dependence Dyspnea on exertion Abnormal electrocardiogram [ECG] [EKG] Tachycardia Palpitations Peripheral neuropathy Pseudoseizures Hearing loss Arthritis Atrial flutter Complex renal cyst Iron deficiency anemia Restless leg syndrome Home Medications ?Medication ?Instructions ?Recorded ?Last Taken ?Type gabapentin 300 mg capsule 300 mg PO QHS 10/30/22 Unkno wn History aspirin 81 mg tablet,delayed 81 mg PO DAILY #90 tabs 0 05/07/24 Unknown Rx release diltiazem HCl 120 mg 120 mg PO DAILY 06/14/24 Unk nown History capsule,extended release 24 hr melatonin 10 mg capsule 10 mg PO HS PRN 12/14/24 Unk nown History terbinafine HCl 250 mg tablet 250 mg PO QDAY 12/14/24 Unknown History gabapentin 100 mg capsule 1 PO BID 12/20/24 Unknown Hi story Allergy/AdvReac Type Severity Reaction Status Date / Time Penicillins Allergy Severe Shortness Verified 12/31/24 14:11 of breath bee venom protein (honey bee) Allergy Intermediate Other Verified 12/31/24 14:11 Sulfa (Sulfonamide Allergy Intermediate Itching Verified 12/31/24 14:11 Antibiotics) chocolate flavor Allergy Mild Other Verified 12/31/24 14:11 nut - unspecified AdvReac Unknown Other Verified 12/31/24 14:11 Family History Other Anemia Arthritis Asthma Breast cancer CVA (cerebral vascular accident) Cervical cancer Depression Heart disease Hypercholesterolemia Hypertension Kidney disease Liver disease Myocardial infarction Ovarian cancer Surgical History Hx of breast implants, bilateral History of bunionectomy (~2018) History of partial hysterectomy (~1981) Hx of cholecystectomy (~1972) Social History Smoking Status: Former smoker Tobacco: How many years used: 53 alcohol intake: former details: none now substance use type: former substance user Date of last use: sober 34 years and crack/cocaine caffeine: Yes Type: coffee Number of servings: 1 ROS ROS ED ROS Narrative Constitutional: Denies fevers, chills, headaches, lightness, dizziness Cardiovascular: Denies chest pain or palpitations Respiratory: Denies shortness of breath Neurological: Denies numbness, weakness, tingling Musculoskeletal: Complains of left lower extremity pain and swelling as noted above Skin: Denies any rashes or lesions EXAM Physical Exam Narrative Exam Narrative: General: Patient lying in bed rest comfortably did not appear to be in acute distress Head: Atraumatic, normocephalic Eyes: PERRL bilaterally, EOMI bilateral, no conjunctival injection noted Neck: Soft, supple, trachea midline Cardiovascular: Regular rate and rhythm no murmurs gallops rubs noted Respiratory: Clear to auscultation bilaterally no rales rhonchi or wheezes noted Abdomen: Soft, nondistended, nontender to palpation Musculoskeletal: Patient has left lower extremity swelling noted with tenderness palpation on the medial aspect of her left ankle. Patient's compartments are soft and compressible Extremities: DP pulses +2/4 in the bilateral extremities, +4/5 strength noted in the bilateral upper and lower extremities, Neurological: Patient follow commands knew that she was at [facility] year is 2024 sensation grossly intact in the bilateral lower extremities Skin: Warm, dry, intact Const Vital Signs: 12/31/24 14:11 Temperature 98.9 F Temperature Source Oral Pulse Rate 74 Respiratory Rate 18 Blood Pressure 123/97 H Blood Pressure Mean 105 Pulse Ox 98 Oxygen Delivery Method Room Air MDM MDM MDM Narrative Medical decision making narrative: Patient is a 69-year-old female who presented to the emergency department chief complaint of left lower extremity swelling and left ankle pain. On the differential diagnose includes but not limited to DVT, medial malleolus fracture, ligamentous injury. Once workup is obtained reviewed she will be reevaluated. All question concerns answered she was discharged home in stable condition patient's ultrasound of her left lower extremity was normal. Patient on reexam has good PT and DP pulses in the left lower extremity. Patient's x-ray of her ankle was reviewed by myself and by radiology and showed soft tissue swelling no visible fracture. Patient's x-ray of her left knee from 12/20/2024 was reviewed and showed no acute fracture that point time. Patient ambulated well here in the emergency department no hypoxia no tachycardia noted. Patient will be given a compression stocking. She is advised to follow-up with Dr. Tomlin at her scheduled appointment on Friday. She is advised to elevate her leg above the level of her heart while sitting down. States that when she gets up in the morning the swelling is improved however by the end of the day she notes that the swelling is significant again. Patient was advised that there is a chance that she may have developed some venous insufficiency in that leg causing the swelling. She is advised return with worsening symptoms or concerns. She is agreeable this plan all question concerns answered she is discharged home in stable condition. Radiography Diagnostic Testing: Clinical Impression(s) from Imaging Studies Ankle X-Ray 12/31/24 15:35 IMPRESSION: Soft tissue swelling. Reading Location: [facility]- Discharge Plan Triage Chief Complaint: Lower Extremity Injury ED Provider: Gary Moreno Dx/Rx/DC Orders Clinical Impression: Left leg swelling, Ankle pain, left Prescriptions: No Action gabapentin 300 mg capsule 300 mg PO QHS diltiazem HCl 120 mg capsule,extended release 24hr 120 mg PO DAILY terbinafine HCl 250 mg tablet 250 mg PO QDAY melatonin 10 mg capsule 10 mg PO HS PRN gabapentin 100 mg capsule 1 PO BID aspirin 81 mg tablet,delayed release (DR/EC) 81 mg PO DAILY Qty: 90 3RF Primary Care Provider: Ana Massey Referrals: Ana Massey MD [Primary Care Provider] - Activity Restrictions/Additional Instructions: Follow-up with Dr. Tomlin at your scheduled appointment on Friday. Ensure that you are elevating your leg above the level of your heart as we discussed here. Your ultrasound today did not show any evidence of blood clot. Your x-ray of your ankle was normal. Using compression stocking when you are up on your feet especially throughout the day at your job. Return with worsening symptoms or other concerns Print Language: Cook Islander Disposition Disposition: Home, Self Care
--- NOTE | 2024-12-31 15:35 | RAD_ITS ---
PROCEDURE: ANKLE MIN 3 VIEWS REASON FOR EXAM: PAIN AND SWELLING TECHNIQUE: 3 views of the left ankle COMPARISON: None FINDINGS: No visible fracture. No suspicious bone lesion. Normal alignment. Mortise appears intact. No effusion. Diffuse soft tissue swelling. Prior fusion of the 1st metatarsal phalangeal joint. RAD/Ankle min 3 Views IMPRESSION: Soft tissue swelling. Reading Location: [place] [id number]
[2024-12-31 16:28] VITALS: O2SAT 95
[2024-12-31 16:55] VITALS: BP 122/82; PULSE 69; RESP 18; TEMP 37.2; O2SAT 99
== END 2024-12-31 16:56 | disposition home or self-care (01) ==
PROVIDERS: Emergency Provider Emergency Medicine; PCP Family Medicine; Visit Provider Emergency Medicine
DX: M79.89 Other specified soft tissue disorders (principal); I48.92 Unspecified atrial flutter; M25.572 Pain in left ankle and joints of left foot; M79.605 Pain in left leg; D50.9 Iron deficiency anemia, unspecified; I34.0 Nonrheumatic mitral (valve) insufficiency; G62.9 Polyneuropathy, unspecified; G25.81 Restless legs syndrome; Z88.0 Allergy status to penicillin; Z88.2 Allergy status to sulfonamides; Z79.82 Long term (current) use of aspirin; Z79.899 Other long term (current) drug therapy; Z87.898 Personal history of other specified conditions; Z87.891 Personal history of nicotine dependence
CPT/HCPCS: 73610; 93971; 99282

== ENCOUNTER → 2025-01-13 | Outpatient (CLI) | payer MEDICARE, SELFPAY ==
[2025-01-13 17:55] LABS: Absolute Lymphocyte Count 1.46 X10^3/uL (0.83-4.51); Absolute Neutrophil Count 3.5 X10^3/uL (2.0-7.7); Basophil# 0.03 X10^3/uL; Basophil% 0.5 % (0-1); Eosinophil# 0.22 X10^3/uL; Eosinophils% 3.8 % (0-5); Hematocrit 34.7 % (37-47); Hemoglobin 10.9 g/dL (12.0-15.0); Lymphocyte # 1.46 X10^3/ul (0.83-4.51); Lymphocyte % 25.3 % (19-41); Mean Corp Hgb Conc 31.4 g/dL (32-36); Mean Corpuscular Hgb 27.6 pg (27.0-32.0); Mean Corpuscular Volume 87.8 fL (81-99); Mean Platelet Vol. 10.9 fl (6.2-12.0); Monocyte% 10.4 % (0-10); NRBC Flagged by Analyzer 0 % (0-5); Neutrophil # 3.46 X10^3/uL (2.7-7.7); Neutrophil % 59.8 % (47-70); Platelet Count 268 K/mm3 (150-450); Red Blood Count 3.95 M/mm3 (4.2-5.4); White Blood Count 5.8 K/mm3 (4.4-11.0)
[2025-01-13 19:26] LABS: Anion Gap 14 (5-15); BUN 25 mg/dL (4-19); Calcium,Total 9.1 mg/dL (7.6-11.0); Chloride 106 mmol/L (98-108); Creatinine, Serum 0.84 mg/dL (0.70-1.20); EST Glomerular Filtration Rate 75 (>60); Glucose 84 mg/dL (70-99); Sodium Level 139 mmol/L (133-145)
== END | disposition home or self-care (01) ==
LOC: BFHLAB 16:24
PROVIDERS: PCP Family Medicine; Referring Provider Family Medicine; Visit Provider Family Medicine
DX: N18.30 Chronic kidney disease, stage 3 unspecified (principal)
CPT/HCPCS: 36415; 80048; 85025

== ENCOUNTER → 2025-01-21 | Outpatient (CLI) | payer MEDICARE, SELFPAY ==
--- NOTE | 2025-01-21 14:57 | US_ITS ---
PROCEDURE: Ultrasound of the left groin. 01/21/2025 REASON FOR EXAM: Left groin lump, swelling TECHNIQUE: Ultrasound targeted to the palpable abnormality at the left groin COMPARISON: CT abdomen/pelvis 12/29/2023 FINDINGS: On targeted images of the left groin region, there are 2 ovoid lobulated peripherally hypoechoic, centrally echogenic structures, favored to represent mildly enlarged lymph nodes. The largest of these is 4.1 x 2.3 x 1.2 cm, with some cortical thickening. US/Ext Non Vasc Limited/Soft Tiss IMPRESSION: 2 mildly enlarged lymph nodes in the left groin region. Precise etiology is un certain. These could be reactive versus neoplastic. Management options include continued sonographic follow-up after a ntibiotic treatment versus biopsy or surgical excision for definitive histologic diagnosis. Reading [facility]
== END | disposition home or self-care (01) ==
LOC: US 14:52
PROVIDERS: PCP Family Medicine; Referring Provider Family Medicine; Visit Provider Family Medicine
DX: R19.09 Other intra-abdominal and pelvic swelling, mass and lump (principal)
CPT/HCPCS: 76882

== ENCOUNTER → 2025-02-02 | Outpatient (CLI) | payer MEDICARE, SELFPAY ==
--- NOTE | 2025-02-02 14:38 | BI_ITS ---
EXAM: SCRN MAMM (CAD)W/BILL BILAT DATE: 02/02/2025 CLINICAL HISTORY: F, Age 69 y/o , SCREENING BREAST CANCER RISK ASSESSMENT: Not assessed. TECHNIQUE: Bilateral screening digital breast tomosynthesis with 2D and 3D images. Computer aided detection. COMPARISON: Prior exam(s) dated February 05, 2024.. FINDINGS: TISSUE DENSITY: The breast tissue is composed of scattered area of fibroglandular density. Bilateral Breast Mammographic Findings: Stable 1.6 cm well-defined nodule in the deep upper lateral aspect of the left breast. Prior sonogram demonstrated this to be a cyst. Stable appearance of the bilateral breast implants. No suspicious masses, areas of developing architectural distortion, or suspicious calcifications. There has been no significant interval change. BI/SCRN MAMM (CAD)W/BILL BILAT IMPRESSION: Right Breast: BIRADS 2 BENIGN FINDING. Left Breast: BIRADS 2 BENIGN FINDING. OVERALL FINAL ASSESSMENT: BIRADS 2 BENIGN FINDING RECOMMENDATION: Routine annual follow-up in 1 Year A letter with findings and recommendations will be mailed to the patient. Reading Location: [place] [address]
== END | disposition home or self-care (01) ==
LOC: OPBI 14:37
PROVIDERS: PCP Family Medicine; Referring Provider Family Medicine; Visit Provider Family Medicine
DX: Z12.31 Encounter for screening mammogram for malignant neoplasm of breast (principal)
CPT/HCPCS: 77063; 77067

== ENCOUNTER → 2025-02-15 | Outpatient (CLI) | payer MEDICARE, SELFPAY ==
--- NOTE | 2025-02-15 14:39 | CT_ITS ---
PROCEDURE: LOW DOSE CT LUNG SCREENING 02/15/2025 REASON FOR EXAM: LUNG CANCER SCREENING TECHNIQUE: Low dose CT chest was performed without IV contrast. Multiplanar reformats were generated. One or more dose reduction techniques were used (e.g., Automated exposure control, adjustment of the mA and/or kV according to patient size, use of iterative reconstruction technique). REFERENCE LINK: [employer] Lung-RADS RADIATION DOSE SUMMARY: CTDlvol: 2.39 mGy DLP: 83.10 mGycm COMPARISON: 07/30/2024 FINDINGS: Note that evaluation of the vasculature, jonathan, and soft tissues is limited in the absence of IV contrast. Heart/pericardium:Mild mitral annular calcification.. No appreciable calcific coronary atherosclerosis. Aorta: Trace to mild atherosclerosis.. Pulmonary arteries: Unremarkable. Lymph nodes: Unremarkable. Lungs/pleura: Atelectasis/scarring. Similar 3 mm subpleural RIGHT upper lobe nodule (series 2, image 52). Airways: Unremarkable. Chest wall: Bilateral breast implants are partially imaged.. Upper abdomen: Partially imaged presumed RIGHT renal cyst.. Musculoskeletal: Demineralization. Mild multilevel spondylosis.. CT/Low Dose CT Lung Screening IMPRESSION: 1. Lung-RADS category: 2 (benign appearance or behavior, <1% chance of malignan cy); continue annual screening with LDCT. 2. Other clinically significant or potentially significant non-lung cancer find ings: None. 3. Additional description as above. Recommendations per [employer]. Lung CT Screening Reporting and Data System (Lung-RADS) v. 2022 Reading Location: [id number]
== END | disposition home or self-care (01) ==
LOC: CT 14:38
PROVIDERS: PCP Family Medicine; Referring Provider Nurse Practitioner Family; Visit Provider Nurse Practitioner Family
DX: Z12.2 Encounter for screening for malignant neoplasm of respiratory organs (principal); Z87.891 Personal history of nicotine dependence
CPT/HCPCS: 71271

== ENCOUNTER → 2025-04-19 | Outpatient (CLI) | payer MEDICARE, SELFPAY ==
[2025-04-19 15:59] LABS: Hematocrit 40.8 % (37-47); Hemoglobin 12.9 g/dL (12.0-15.0); Immature Granulocytes Count 0.020 X10^3/uL (0.0-0.0); Mean Corp Hgb Conc 31.6 g/dL (32-36); Mean Corpuscular Volume 92.1 fL (81-99); Mean Platelet Vol. 11.5 fl (6.2-12.0); NRBC Flagged by Analyzer 0 % (0-5); Platelet Count 266 K/mm3 (150-450); RBC Distribution Width CV 14.0 % (11.6-14.6); RBC Distribution Width SD 47.4 fl (35.1-43.9); Red Blood Count 4.43 M/mm3 (4.2-5.4); White Blood Count 5.9 K/mm3 (4.4-11.0)
[2025-04-19 17:01] LABS: Ferritin 20 ng/mL (22-378); Iron 76 ug/dL (50-170); Iron Binding Capacity,Total 361 ug/dL (250-450); Iron Binding Capacity,Unsat 285 ug/dL (228-428)
[2025-04-21 14:27] LABS: AST(SGOT) 24 U/L (<=31); Alanine Aminotransfer ALT/SGPT 14 U/L (<=34); Albumin, Serum 4.3 g/dL (3.4-4.8); Alkaline Phosphatase 105 U/L (35-104); Anion Gap 11 (5-15); BUN 25 mg/dL (4-19); BUN/Creat Ratio 27.0 RATIO (10-20); Calcium,Total 9.6 mg/dL (7.6-11.0); Carbon Dioxide 24.2 mmol/L (21.0-32.0); Chloride 104 mmol/L (98-108); Globulin 2.5 g/dL (2.2-4.2); Glucose 76 mg/dL (70-99); Potassium 4.8 mmol/L (3.3-5.1)
== END | disposition home or self-care (01) ==
LOC: BFHLAB 13:01
PROVIDERS: PCP Family Medicine; Visit Provider Family Medicine
DX: D50.9 Iron deficiency anemia, unspecified (principal); I48.92 Unspecified atrial flutter; G25.81 Restless legs syndrome
CPT/HCPCS: 36415; 80053; 82728; 83540; 83550; 85025

== ENCOUNTER → 2025-04-21 | Outpatient (CLI) | payer MEDICARE, SELFPAY | END | disposition home or self-care (01) | LOC: RAD 16:23 | PROVIDERS: PCP Family Medicine; Referring Provider Family Medicine; Visit Provider Family Medicine | DX: F17.200 Nicotine dependence, unspecified, uncomplicated (principal) | CPT/HCPCS: 71046 ==

== ENCOUNTER → 2025-05-04 | Outpatient (CLI) | payer MEDICARE, SELFPAY ==
--- NOTE | 2025-05-04 16:25 | US_ITS ---
PROCEDURE: EXT NON VASC LIMITED/SOFT TISS 05/04/2025 REASON FOR EXAM: INTRAABD/PELVIC SWELLING/MASS/HX OF CERVICAL CA Three-month follow-up. TECHNIQUE: EXT NON VASC LIMITED/SOFT TISS COMPARISON: Prior study dated January 21, 2025. FINDINGS: Once again, there are multiple enlarged abnormal appearing lymph nodes in the region of the left groin. The largest measures 5 cm x 2.5 cm 1.5 cm. Biopsy recommended. US/Ext Non Vasc Limited/Soft Tiss IMPRESSION: Multiple enlarged abnormal appearing lymph nodes in the left groin. Biopsy rec ommended. Reading Location: [place] [address]
--- NOTE | 2025-05-04 16:25 | US_ITS ---
PROCEDURE: EXT NON VASC LIMITED/SOFT TISS 05/04/2025 REASON FOR EXAM: INTRAABD/PELVIC SWELLING/MASS/HX OF CERVICAL CA Three-month follow-up. TECHNIQUE: EXT NON VASC LIMITED/SOFT TISS COMPARISON: Prior study dated January 21, 2025. FINDINGS: Once again, there are multiple enlarged abnormal appearing lymph nodes in the region of the left groin. The largest measures 5 cm x 2.5 cm 1.5 cm. Biopsy recommended. US/Ext Non Vasc Limited/Soft Tiss IMPRESSION: Multiple enlarged abnormal appearing lymph nodes in the left groin. Biopsy rec ommended. Reading Location: [place] [address]
== END | disposition home or self-care (01) ==
LOC: US 16:20
PROVIDERS: PCP Family Medicine; Referring Provider Family Medicine; Visit Provider Family Medicine
DX: R19.09 Other intra-abdominal and pelvic swelling, mass and lump (principal); Z85.41 Personal history of malignant neoplasm of cervix uteri
CPT/HCPCS: 76882

== ENCOUNTER → 2025-05-19 | Outpatient (CLI) | payer MEDICARE, SELFPAY ==
[2025-05-19 11:39] LABS: Pathology Sent to OSU SEE PATHOLOGY REPORT
== END | disposition home or self-care (01) ==
LOC: LABSPEC 10:33
PROVIDERS: PCP Family Medicine; Referring Provider Surgery; Visit Provider Surgery
DX: R59.0 Localized enlarged lymph nodes (principal)

== ENCOUNTER 2025-06-17 11:14 | Outpatient (CLI) | payer MEDICARE, SELFPAY ==
--- NOTE | 2025-06-17 08:30 | CER_PTH ---
PATIENT: ANNA HINES LOC: [facility] U#:[id number] AGE/SX: 70/F ROOM: RE06/17/[address]: Dr. Amparo Washington DO : 1955 BED: DIS: 06/17/2025 SPEC #: [id number] RECD: 06/17/25 12:17 STATUS: BERNARD VINNY #: [id number] PIPO: 06/17/25 08:[address]: Amparo Washington DEPT: SURGICAL PATHOLOGY RECD BY: Karsten Burgos ENTERED: 06/17/25 14:43 SP TYPE: CERV OTHR DR: Dr. Ana Massey MD Tissues: A - Uterine cervix, NOS Procedures: Surgery Specimen Level IV HEADER OPERATION: Colposcopy PRE-OP DIAGNOSIS: History of vaginal cancer with unknown primary site TISSUE SUBMITTED: A- Vaginal vault MICROSCOPIC DIAGNOSIS A. Vaginal vault, colposcopic biopsy: - Squamous mucosa with marked chronic inflammation. - No malignant change is seen in these sections. MICROSCOPIC DESCRIPTION Slides are reviewed. GROSS DESCRIPTION A. Received in formalin labeled with the patient's name and date of are 2 scanlon-pink tissue fragments, 0.1 cm and 0.4 cm. Entirely submitted in 1 cassette. IN 06/17/2025 CPT:65382
[2025-06-22 11:08] LABS: HPV APTIMA, High Risk Negative (Negative)
== END 2025-06-17 23:59 | disposition home or self-care (01) ==
LOC: LABSPEC 11:14
PROVIDERS: PCP Family Medicine; Referring Provider Obstetrics & Gynecology; Visit Provider Obstetrics & Gynecology
DX: C80.1 Malignant (primary) neoplasm, unspecified (principal); C77.1 Secondary and unspecified malignant neoplasm of intrathoracic lymph nodes; C77.4 Secondary and unspecified malignant neoplasm of inguinal and lower limb lymph nodes; C77.2 Secondary and unspecified malignant neoplasm of intra-abdominal lymph nodes; C77.5 Secondary and unspecified malignant neoplasm of intrapelvic lymph nodes; Z12.72 Encounter for screening for malignant neoplasm of vagina
CPT/HCPCS: 87624; 88175; 88305; G0145

== ENCOUNTER 2025-06-21 09:47 | Day surgery (SDC) | payer MEDICARE, SELFPAY ==
--- NOTE | 2025-06-17 09:42 | PAT.ANESEVAL ---
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 When Was Last Pacemaker Check QUESTION #4 FULL TEXT: You/Your Family Experience fever (hyperthermia) with Anesthesia Last Oral Intake Last Oral intake: Last Oral Intake NPO since Meds taken in AM with sips of water? 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 Female Yes 06/17/25 09:17 HX of Motion Sickness No 06/17/25 09:17 HX of N/V After Surgery No 06/17/25 09:17 Non-Smoker Yes 06/17/25 09:17 Duration of Surgery greater Yes 06/17/25 09:17 than 60 minutes Number of Risk Factors 3 06/17/25 09:17 PONV Score Moderate Risk 06/17/25 09:17 Height & Weight Height & Weight: Anesthesia: Height & Weight Height 6 ft 06/14/25 13:12 Respiratory Assessment Respiratory Assessment - rubber extrusion machine operator: Respiratory Tract Infection Hx - 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 Has anyone observed you stop No 06/17/25 09:17 breathing during sleep? STOP Results Negative 06/17/25 09:17 QUESTION #5 FULL TEXT : Do you snore loudly (louder than talking or can be heard through closed doors)? 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 Specify any problems Hx of Preganancy in last 3 No 06/17/25 09:17 Months Nurse Filling Out Transfusion TORY 06/17/25 09:17 & Questions: Date: 06/17/25 06/17/25 09:17 Time: 09:20 06/17/25 09:17 Patient unable to answer at this time (ie. 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 operator Hx Now No 06/17/25 09:17 Gestational Age (in weeks): EDC: Hx Hx Para Hx Section SAB No 06/17/25 09:17 Active Medications Active Medications: Current Medications Generic Name Dose Route Start Last Admin Trade Name Freq PRN Reason Stop Dose Admin Clindamycin Phosphate 900 mg in 50 mls @ 75 mls/hr 06/21/25 11:30 Cleocin IV 06/21/25 12:09 INTRAOP ONE [facility] Medical History (Updated 06/17/25 @ 09:29 by Janelle Gonzalez) Wears glasses Wears dentures Cancer Alcohol use Low iron Injury of head and neck TIA (transient ischemic attack) Former smoker History of edema History of Holter monitoring History of echocardiogram History of stress test History of atrial fibrillation Cardiology follow-up encounter 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 Iron deficiency anemia due to chronic blood loss Cancer of inguinal/lower limb lymph nodes, secondary Cancer with unknown primary site Hammer toe of right foot History of tobacco use Encounter for screening for malignant neoplasm of lung in patient with less than 30 pack year smoking history Mitral regurgitation Weight loss LUQ abdominal pain Abdominal pain Elevated TSH Lightheadedness Nicotine dependence Dyspnea on exertion Abnormal electrocardiogram [ECG] [EKG] Tachycardia Palpitations Peripheral neuropathy Pseudoseizures Hearing loss Arthritis Atrial flutter Complex renal cyst Iron deficiency anemia Restless leg syndrome Home Medications ?Medication ?Instructions ?Recorded ?Last Taken ?Type gabapentin 300 mg capsule 300 mg PO QHS 10/30/22 Unknown History aspirin 81 mg tablet,delayed 81 mg PO DAILY #90 tabs 05/07/24 Unknown Rx release diltiazem HCl 120 mg 120 mg PO DAILY 06/14/24 Unknown History capsule,extended release 24 hr melatonin 10 mg capsule 20 mg PO HS PRN sleep 12/14/24 Unknown History gabapentin 100 mg capsule 100 mg PO DAILY 12/20/24 Unknown History Allergy/AdvReac Type Severity Reaction Status Date / Time Penicillins Allergy Severe Shortness Verified 06/17/25 09:14 of breath bee venom protein (honey bee) Allergy Intermediate Other Verified 06/17/25 09:14 latex Allergy Intermediate Hives Verified 06/17/25 09:14 Sulfa (Sulfonamide Allergy Intermediate Itching Verified 06/17/25 09:14 Antibiotics) chocolate flavor Allergy Mild Other Verified 06/17/25 09:14 nut - unspecified AdvReac Unknown Other Verified 06/17/25 09:14 Family History Other Anemia Arthritis Asthma Breast cancer CVA (cerebral vascular accident) Cervical cancer Depression Heart disease Hypercholesterolemia Hypertension Kidney disease Liver disease Myocardial infarction Ovarian cancer Surgical History (Updated 06/17/25 @ 09:17 by Janelle Gonzalez) History of esophagogastroduodenoscopy (EGD) History of colonoscopy History of ear surgery Hx of appendectomy Hx of breast implants, bilateral History of bunionectomy (~2018) History of partial hysterectomy (~1981) Hx of cholecystectomy (~1972) Social History (Updated 06/17/25 @ 08:26 by Ana White) Smoking Status: Former smoker Tobacco: How many years used: 53 alcohol intake: former year quit: 1991 substance use type: former substance user Date of last use: sober 34 years and crack/cocaine caffeine: Yes Type: coffee Number of servings: 1 additional social history: Single She only has knowledge of 1 child (others were taken away years ago) Recommendation Anesthesia Recommendation Anesthesia recommendation: OPTIMIZED for anesthesia
[2025-06-21] VITALS (8 sets, daily range): BP systolic 92–109; BP diastolic 61–82; PULSE 58–69; RESP 14–20; TEMP 36.1–36.5; O2SAT 96–100; BMI 24.5
[2025-06-21] MEDS: Lactated Ringers 1,000 ML 15 ML IV (10:25)
--- NOTE | 2025-06-21 10:54 | PRE.ANES_ITS ---
ASA Classification* ASA Classification ASA Classification: 3 Assessment & Plan Anesthesia* Anesthesia Assessment Anesthesia Assessment: Discussed sedation and/or anesthesia options, risks, benefits, and alternatives with patient/parents/legal guardian/POA. Questions invited. The patient/parents/legal guardian/POA seems to understand and agrees to proceed with anesthesia plan. Reviewed the physical assessment, medical history, allergy history and patient home medications list prior to surgery/procedure/anesthetic and documented any changes. Performed airway and anesthesia risk assessments. Anesthesia Type Anesthesia Type: MAC History Source History Obtained from:: Patient and Chart Anesthesia Focused Assessment* Temperature: 97.7 F Pulse Rate: 67 Blood Pressure: 109/81 Respiratory Rate: 18 Pulse Ox: 99 Oxygen Delivery Method: Room Air Airway Assessment Mouth opens: >3 cm Mallampati Score: I Teeth Condition: Full (Patient has full upper and lower dentures. They will stay in.) Neck Range of motion (ROM): Full ROM Labs Anesthesia Preop lab: CBC WBC 6.9 K/mm3 (4.4-11.0) 05/30/25 15:15 05/30/25 RBC 4.25 M/mm3 (4.2-5.4) 05/30/25 15:15 05/30/25 Hgb 12.4 g/dL (12.0-15.0) 05/30/25 15:15 05/30/25 Hct 39.3 % (37-47) 05/30/25 15:15 05/30/25 Plt Count 265 K/mm3 (150-450) 05/30/25 15:15 05/30/25 CHEMISTRY Potassium 4.4 mmol/L (3.3-5.1) 05/30/25 15:15 05/30/25 Sodium 140 mmol/L (133-145) 05/30/25 15:15 05/30/25 BUN 28 mg/dL (4-19) H 05/30/25 15:15 05/30/25 Creatinine 1.20 mg/dL (0.70-1.20) 05/30/25 15:15 05/30/25 Glucose 97 mg/dL (70-99) 05/30/25 15:15 05/30/25 TSH 3.910 uIU/mL (0.358-3.740) H 11/16/24 15:52 COAG Pre-Assessment Diagnosis/Proposed Procedure Planned Operative Procedure(s): (R) Insertion,Right poss Left IJ Vascular Port & Anoscope w/poss biopsy Anesthesia History Anesthesia History - castings trimmer: Anesthesia History - castings trimmer Hx Hospitalization No 06/17/25 09:17 Any Problems With Anesthesia No 06/17/25 09:17 Cholinesterase deficiency No 06/17/25 09:17 You/Your Family Experience No 06/17/25 09:17 fever (hyperthermia) with Relationship Recent Exposure to Contagious No 06/21/25 10:13 Disease Does patient have nerve No 06/17/25 09:17 stimulator Patient instructed to have device shut off --Does patient have Pacemaker No 06/21/25 10:13 or ICD? When Was Last Pacemaker Check QUESTION #4 FULL TEXT: You/Your Family Experience fever (hyperthermia) with Anesthesia Last Oral Intake Last Oral intake: Last Oral Intake NPO since 06:00 06/21/25 10:13 Meds taken in AM with sips of Yes 06/21/25 10:13 water? Meds patient instructed to take am of surgery Any additional information?: Yes Meds taken in AM with sips of water?: Yes PONV PONV - castings trimmer: PONV - castings trimmer Female Yes 06/17/25 09:17 HX of Motion Sickness No 06/17/25 09:17 HX of N/V After Surgery No 06/17/25 09:17 Non-Smoker Yes 06/17/25 09:17 Duration of Surgery greater Yes 06/17/25 09:17 than 60 minutes Number of Risk Factors 3 06/17/25 09:17 PONV Score Moderate Risk 06/17/25 09:17 Height & Weight Height & Weight: Anesthesia: Height & Weight Height 6 ft 06/21/25 10:13 Weight: 81.9 kg 06/21/25 10:13 Body Mass Index (BMI) 24.5 06/21/25 10:13 Respiratory Assessment Respiratory Assessment - castings trimmer: Respiratory Tract Infection Hx - castings trimmer Hx Respiratory Tract Infection No 06/17/25 09:17 STOP Sleep Apnea STOP Sleep Apnea - castings trimmer: STOP Sleep Apnea - castings trimmer Hx Hypertension No 06/17/25 09:17 Hx Sleep Apnea No 06/17/25 09:17 CPAP BIPAP Do you snore loudly (louder No 06/17/25 09:17 than talking or can be heard Do you often feel tired/ No 06/17/25 09:17 fatigued/ sleepy during daytime? Has anyone observed you stop No 06/17/25 09:17 breathing during sleep? STOP Results Negative 06/17/25 09:17 QUESTION #5 FULL TEXT : Do you snore loudly (louder than talking or can be heard through closed doors)? 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 Specify any problems Hx of Preganancy in last 3 No 06/17/25 09:17 Months Nurse Filling Out Transfusion MGRIFFDAMARI 06/17/25 09:17 & Questions: Date: 06/17/25 06/17/25 09:17 Time: 09:20 06/17/25 09:17 Patient unable to answer at this time (ie. confused, unrespo /Reproduction History /Reproductive History - castings trimmer: /Reproductive Hx- castings trimmer Hx Now No 06/17/25 09:17 Gestational Age (in weeks): EDC: Hx Hx Para Hx Section SAB No 06/17/25 09:17 Active Medications Active Medications: Current Medications Generic Name Dose Route Start Last Admin Trade Name Freq PRN Reason Stop Dose Admin Clindamycin Phosphate 900 mg in 50 mls @ 75 mls/hr 06/21/25 11:30 Cleocin IV 06/21/25 12:09 INTRAOP ONE Lactated Ringer's 1,000 mls @ 15 mls/hr 06/21/25 10:00 06/21/25 10:25 IV 15 mls/hr .Q48H EMELY Administration PFSH Medical History Wears glasses Wears dentures Cancer Alcohol use Low iron Injury of head and neck TIA (transient ischemic attack) Former smoker History of edema History of Holter monitoring History of echocardiogram History of stress test History of atrial fibrillation Cardiology follow-up encounter 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 Iron deficiency anemia due to chronic blood loss Cancer of inguinal/lower limb lymph nodes, secondary Cancer with unknown primary site Hammer toe of right foot History of tobacco use Encounter for screening for malignant neoplasm of lung in patient with less than 30 pack year smoking history Mitral regurgitation Weight loss LUQ abdominal pain Abdominal pain Elevated TSH Lightheadedness Nicotine dependence Dyspnea on exertion Abnormal electrocardiogram [ECG] [EKG] Tachycardia Palpitations Peripheral neuropathy Pseudoseizures Hearing loss Arthritis Atrial flutter Complex renal cyst Iron deficiency anemia Restless leg syndrome Home Medications ?Medication ?Instructions ?Recorded ?Last Taken ?Type gabapentin 300 mg capsule 300 mg PO QHS 10/30/22 Unkno wn History aspirin 81 mg tablet,delayed 81 mg PO DAILY #90 tabs 0 05/07/24 Unknown Rx release diltiazem HCl 120 mg 120 mg PO DAILY 06/14/2412/14 History capsule,extended release 24 hr melatonin 10 mg capsule 20 mg PO HS PRN sleep Unknown History gabapentin 100 mg capsule 100 mg PO DAILY 12/20/24 Unk nown History Allergy/AdvReac Type Severity Reaction Status Date / Time Penicillins Allergy Severe Shortness Verified 06/21/25 10:11 of breath bee venom protein (honey bee) Allergy Intermediate Other Verified 06/21/25 10:11 latex Allergy Intermediate Hives Verified 06/21/25 10:11 Sulfa (Sulfonamide Allergy Intermediate Itching Verified 06/21/25 10:11 Antibiotics) chocolate flavor Allergy Mild Other Verified 06/21/25 10:11 nut - unspecified AdvReac Unknown Other Verified 06/21/25 10:11 Family History Other Anemia Arthritis Asthma Breast cancer CVA (cerebral vascular accident) Cervical cancer Depression Heart disease Hypercholesterolemia Hypertension Kidney disease Liver disease Myocardial infarction Ovarian cancer Surgical History History of esophagogastroduodenoscopy (EGD) History of colonoscopy History of ear surgery Hx of appendectomy Hx of breast implants, bilateral History of bunionectomy (~2018) History of partial hysterectomy (~1981) Hx of cholecystectomy (~1972) Social History Smoking Status: Former smoker Tobacco: How many years used: 53 alcohol intake: former year quit: 1991 substance use type: former substance user Date of last use: sober 34 years and crack/cocaine caffeine: Yes Type: coffee Number of servings: 1 additional social history: Single She only has knowledge of 1 child (others were taken away years ago) Review of Systems (Anesthesia) ROS Narrative System reviewed and no additional complaints, except as documented.
--- NOTE | 2025-06-21 11:26 | PCM.HP.BLA ---
History and Physical Date of Admission: 06/21/25 Date of Service: 06/17/25 MR#: [id number] Acct: [id number] Name: ANNA HINES Rep #: [id number] : 1955 Provider: Dr. Eliud Marshall MD Age/Sex: 70/F Location: [facility] Status: Signed Intake Vital Signs 06/14/2513:12 06/17/2508:10 06/17/2513:33 Height 6 ft 6 ft 6 ft Weight: 182 lb 2 oz BMI 24.7 BP 103/68 Blood Pressure Location Rt brachial Position Sitting Respiration 18 Pulse 72 Pulse Source Monitor Temp 98.2 F Temp Source Temporal Pulse Oximetry (%) 99 Oxygen Delivery Method room air Intake Visit Reasons: port placment and discuss anoscope Chief Complaint: port placement and discuss anoscope Is patient in pain?: No Allergies Penicillins Allergy (Severe, Verified 06/17/25 13:34) Shortness of breathbee venom protein (honey bee) Allergy (Intermediate, Verified 06/17/25 13:34) Otherlatex Allergy (Intermediate, Verified 06/17/25 13:34) HivesSulfa (Sulfonamide Antibiotics) Allergy (Intermediate, Verified 06/17/25 13:34) Itchingchocolate flavor Allergy (Mild, Verified 06/17/25 13:34) Othernut - unspecified Adverse Reaction (Unknown, Verified 06/17/25 13:34) Other Medications ?Medication ?Instructions ?Recorded ?Confirmed ?Type gabapentin 300 mg capsule 300 mg PO QHS 10/30/22 06/17/25 History aspirin 81 mg tablet,delayed 81 mg PO DAILY #90 tabs 05/07/24 06/17/25 Rx release diltiazem HCl 120 mg 120 mg PO DAILY 06/14/24 06/17/25 History capsule,extended release 24 hr melatonin 10 mg capsule 20 mg PO HS PRN sleep 12/14/24 06/17/25 History gabapentin 100 mg capsule 100 mg PO DAILY 12/20/24 06/17/25 History Have you fallen in the past year?: No PFSH Medical History Wears glasses Wears dentures Cancer Alcohol use Low iron Injury of head and neck TIA (transient ischemic attack) Former smoker History of edema History of Holter monitoring History of echocardiogram History of stress test History of atrial fibrillation Cardiology follow-up encounter 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 Iron deficiency anemia due to chronic blood loss Cancer of inguinal/lower limb lymph nodes, secondary Cancer with unknown primary site Hammer toe of right foot History of tobacco use Encounter for screening for malignant neoplasm of lung in patient with less than 30 pack year smoking history Mitral regurgitation Weight loss LUQ abdominal pain Abdominal pain Elevated TSH Lightheadedness Nicotine dependence Dyspnea on exertion Abnormal electrocardiogram [ECG] [EKG] Tachycardia Palpitations Peripheral neuropathy Pseudoseizures Hearing loss Arthritis Atrial flutter Complex renal cyst Iron deficiency anemia Restless leg syndrome Surgical History History of esophagogastroduodenoscopy (EGD) History of colonoscopy History of ear surgery Hx of appendectomy Hx of breast implants, bilateral History of bunionectomy (~2017) History of partial hysterectomy (~1981) Hx of cholecystectomy (~1972) Family History Other Anemia Arthritis Asthma Breast cancer CVA (cerebral vascular accident) Cervical cancer Depression Heart disease Hypercholesterolemia Hypertension Kidney disease Liver disease Myocardial infarction Ovarian cancer Social History Smoking Status: Former smoker Tobacco: How many years used: 53 alcohol intake: former year quit: 1991 substance use type: former substance user Date of last use: sober 34 years and crack/cocaine caffeine: Yes Type: coffee Number of servings: 1 additional social history: Single She only has knowledge of 1 child (others were taken away years ago) HPI HPI HPI: Patient is a 70-year-old female who presents for consideration of port placement. Patient was diagnosed with metastatic squamous cell carcinoma on 05/19/2025 after biopsy of some inguinal adenopathy. However, she reports that she had a left leg injury on 12/20/2024 which included numerous imaging modalities and a search for a DVT but at that time she was noted to have some enlarged lymph nodes. Her PCP then, reviewing the reports from December, informed her of this abnormality in March and additional testing followed. They have met with oncology and plans are to begin chemotherapy fairly imminently, however, they are pending further testing on her pathology and a firm date is yet to be set. Patient has no prior history of central line placement. Patient has no pacemaker or intracardiac defibrillator. Patient does have a history of renal dysfunction which was discussed first beginning of this year, however, some of this kidney function appears to have improved spontaneously. Mrs. Hines is not currently prescribed blood thinners. Ms. 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 She notes that she underwent colonoscopy last year with Dr. Hoffman of gastroenterology. She declares no polyps were identified at that exam. She does confirm a chronic history with anemia but denies any changes to her bowel habits apart from dark stools (she admits she takes iron supplementation. ROS General General: Yes weight change (gain); No appetite, fatigue, colon cancer, breast cancer or weakness HEENT HEENT: No difficulty swallowing, eye injury, eye surgery, swollen glands or hoarseness Endo Endocrine: No thyroid disease, diabetes mellitus, thyroid cancer, Hair loss, heat intolerance or cold intolerance Skin Skin: Yes rash; No changing moles Musc Musculoskeletal: Yes arthritis Cardio Cardiovascular: No murmur, pacemaker, heart disease, atrial fibrillation, high blood pressure, heart attack, heart stent, palpitations, shortness of breath with exertion or chest pain Psych Psychiatric: No depression, anxiety or hearing voices Resp Respiratory: No shortness of breath, No sleep apnea, No cough, No COPD, No asthma, No emphysema and No wheezing Gastro Gastrointestinal: Yes abdominal pain, No nausea or vomiting, No diarrhea, Yes constipation, No blood in stool, No acid reflux, No hemorrhoids, No ulcers, Yes gallbladder problem and No black,tarry stools Anthony Hematologic: Yes blood thinners, No blood disorders, No bleeding, Yes anemia and No blood clots Neuro Neurologic: No numbness, No tingling and No weakness Exam Const General: cooperative, comfortable and anxious Orientation: alert, awake and oriented x3 Neck Other: No scars, rashes, or other eruptions of the bilateral lower neck/upper chest. There is a tattoo of the right upper chest area. 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 She has no prior history of central line access. Procedure overview was given and patient was receptive. I was careful to detail the risks of infection of this line and the rationale for tunneling. Patient is receptive and date has been set for 06/20/2025. 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 We will plan to complete evaluation of her anal canal following port placement to exclude the possibility of a source within the anus. Plan: ? Patient asked to complete enema prior to procedure on 06/21/2025 which will include endoscopic evaluation of the anal canal I have examined the patient and the H&P has been reviewed. There are no clinical changes since date of exam. Patient has several questions related to port usage after implantation and how to keep it free of infection given her occupational exposures. These were answered and consents were confirmed. Proceed to the operating room for planned right possible left Port-A-Cath placement as well as endoscopic evaluation of the anal canal and probable biopsy.
--- NOTE | 2025-06-21 11:30 | COLBX_PTH ---
PATIENT: ANNA HINES LOC: [facility] [place] U#:[id number] AGE/SX: 70/F ROOM: RE06/21/[address]: Dr. Eliud Marshall MD : 1955 BED: DIS: 06/21/2025 SPEC #: [id number] RECD: 06/21/25 13:56 STATUS: BERNARD NIRIram #: [id number] PIPO: 06/21/25 11:[address]: Eliud Marshall DEPT: SURGICAL PATHOLOGY RECD BY: Karsten Burgos ENTERED: 06/21/25 14:27 SP TYPE: COLON BX OTHR DR: Dr. 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 Anus, biopsy: - Benign squamous and columnar mucosa. B. Rectum, biopsy: - Hyperplastic polyp. C. Colon, sigmoid, biopsy: - Hyperplastic polyp. D. Rectum, biopsy: - Hyperplastic polyp, prolapse changes. MICROSCOPIC DESCRIPTION Slides are reviewed. GROSS DESCRIPTION Received in 4 formalin containers labeled with the patient's name and date of . Designated as: A. Anal mucosa biopsy are multiple flecks of tissue, <0.1 cm to 0.2 cm. Entirely submitted in 1 cassette. The entirety of the specimen may not survive processing. B. Rectal mucosa plaque BX are 2 scanlon to erythematous tissue fragments, 0.2 cm each. Entirely submitted in 1 cassette. C. Sigmoid colon BX are 2 scanlon to erythematous tissue fragments, 0.5 cm each. Entirely submitted in 1 cassette. D. Rectal polyp BX is a 0.3 cm scanlon to erythematous tissue fragment. Entirely submitted in 1 cassette. CA 06/21/2025 CPT:15337c3
[2025-06-21] MEDS: Midazolam 2 MG/2 ML Syringe IV (11:35)
[2025-06-21] MEDS: Lidocaine 1% (5 ml sdv) 5 ML Vial 3 ML IV (11:40)
[2025-06-21] MEDS: Bupiv/Epi 0.25% 30 ML Vial (12:00)
[2025-06-21] MEDS: Lactated Ringers 2,000 ML 2000 ML IV (12:35)
--- NOTE | 2025-06-21 12:59 | OP.PCM_ITS ---
Operative Report (Standard) Operative Information RN Documented Start/Stop Times: Operation Date: 06/21/25 11:30 Case Time Into Pre-Op 06/21/25 09:57 Out of Pre-Op 06/21/25 11:29 Anesthesia Start 06/21/25 11:35 Into Room 06/21/25 11:35 Procedure Start 06/21/25 11:56 Procedure End 06/21/25 12:55 Select all DRAINS/GRAFTS/IMPLANTS that apply: Implanted device (PowerPort ISP MRI implantable) Implanted device details: Reference [id number], lot [id number] Specimen collected: Yes Description of specimen(s) removed: See proctoscopy report Description of surgery: After appropriate identification in the preoperative holding area the patient was brought to the operating room. There [he/she] was administered preoperative antibiotics and positioned supine on the operating room table. Once sedation was begun, the upper chest and lower cervical region were prepped and draped in usual sterile fashion. A formal timeout was then conducted to confirm both the patient and procedure. Ultrasound was used to localize the [right/left] internal jugular vein. Then a wheal of [type of local anesthetic] was raised superficially in this location and the vein was accessed with [number of passes/attempts] under direct ultrasound guidance using a Seldinger technique and micro access kit to place a guidewire. The position of the guidewire was confirmed with fluoroscopy. The micro access guidewire was exchanged for standard 035 guidewire using provided sheath. Next the position of the port pocket was determined and again local anesthetic was used to anesthetize the area of both the pocket and the tunneling cephalad. A transverse incision approximately 3 cm in width was made down through the subcutaneous tissue. Selective electrocautery was used to obtain hemostasis. Then with blunt dissection the port pocket was developed. The catheter was connected to the tunneler and was tunneled up to the position of the guidewire. Here the dilator and peel-away sheath were placed over the guidewire and the guidewire was removed. Position was again confirmed with fluoroscopy. The catheter length was estimated based on the external placement of a hemostat to approximate the level of the marvin and the cavoatrial junction. The catheter was then fed into the sheath and slowly the sheath was peeled away as the catheter was inserted fully into the neck. Back in the chest the excess catheter was trimmed and the port was connected to the catheter. The port was tied into the pocket using [2- 0 Prolene/3-0 Vicryl]. Function was then tested using sterile saline on a Merino needle. It was locked with [2.5] mL of heparinized saline (concentration 50U/5mL). The port pocket was closed with a deep dermal stitch using a running 3-0 Vicryl followed by 4-0 Monocryl subcuticular stitch. The 1 cm incision in the neck was closed with a single interrupted subcuticular stitch using 4-0 Monocryl. Dermabond was applied as a dressing. Patient was then aroused from the sedation and taken to PACU for ongoing recovery were a portable chest x-ray was obtained to confirm port positioning and exclude any pneumothorax. Complications Complications: No Admit VTE Documentation VTE Mechan Device Prophylaxis: SCD's (Right lower extremity only given patient's injury history)
--- NOTE | 2025-06-21 12:59 | RAD_ITS ---
EXAM: XR Chest, 1 View CLINICAL INDICATION: STATUS POST LINE PLACEMENT TECHNIQUE: Frontal view of the chest. COMPARISON: No relevant prior studies available. FINDINGS: LUNGS AND PLEURAL SPACES: Bibasilar atelectasis or pneumonia. No pneumothorax. HEART: Unremarkable. No cardiomegaly. MEDIASTINUM: Unremarkable. Normal mediastinal contour. BONES/JOINTS: Unremarkable. No acute fracture. TUBES, LINES AND DEVICES: Right-sided Mediport with the distal tip in the SVC. No pneumothorax. RAD/CXR for Line Placement IMPRESSION: 1. No pneumothorax. 2. Bibasilar atelectasis or pneumonia. Reading [facility]
--- NOTE | 2025-06-21 12:59 | PCM.OPRPT ---
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 Ultrasound and fluoroscopic guidance of right internal jugular Port-A-Cath placement 2. Proctoscopy with biopsy data center solutions architect: No Type of Anesthesia: MAC/Supplemental RN Documented Start/Stop Times: Operation Date: 06/21/25 11:30 Case Time Into Pre-Op 06/21/25 09:57 Out of Pre-Op 06/21/25 11:29 Anesthesia Start 06/21/25 11:35 Into Room 06/21/25 11:35 Procedure Start 06/21/25 11:56 Procedure End 06/21/25 12:55 Anesthesia End 06/21/25 12:59 Out of Room 06/21/25 12:59 Into Recovery 06/21/25 13:01 Out of Recovery 06/21/25 13:27 Into Phase II Recovery 06/21/25 13:28 Out of Phase II 06/21/25 14:19 Procedure Start Time: 11:56 Procedure Stop Time: 12:55 Select all DRAINS/GRAFTS/IMPLANTS that apply: Implanted device (PowerPort ISP MRI implantable) Implanted device details: Reference [id number], lot [id number] Estimated Blood Loss: 5 Specimen collected: Yes Description of specimen(s) removed: See proctoscopy report Description of surgery: After appropriate identification in the preoperative holding area the patient was brought to the operating room. There she was administered preoperative antibiotics and positioned supine on the operating room table. Once sedation was begun, the upper chest and lower cervical region were prepped and draped in usual sterile fashion. A formal timeout was then conducted to confirm both the patient and procedure. Ultrasound was used to localize the right internal jugular vein. Then a wheal of 0.25% bupivacaine with epinephrine was raised superficially in this location and the vein was accessed with 2 attempts (the initial attempt was made with a micro access kit which was abandoned after coiling of the wire) under direct ultrasound guidance using a Seldinger technique. The position of the guidewire was confirmed with fluoroscopy. Next the position of the port pocket was determined and again local anesthetic was used to anesthetize the area of both the pocket and the tunneling cephalad. A transverse incision 3 cm in width was made down through the subcutaneous tissue. Selective electrocautery was used to obtain hemostasis. Then with blunt dissection the port pocket was developed. The catheter was connected to the tunneler and was tunneled up to the position of the guidewire. Here the dilator and peel-away sheath were placed over the guidewire and the guidewire was removed. Position was again confirmed with fluoroscopy. The catheter length was estimated based on the external placement of a hemostat to approximate the level of the marvin and the cavoatrial junction. The catheter was then fed into the sheath and slowly the sheath was peeled away as the catheter was inserted fully into the neck. Back in the chest the excess catheter was trimmed and the port was connected to the catheter. The port was tied into the pocket using 3-0 Vicryl. Function was then tested using sterile saline on a Merino needle. It was locked with 3.0 mL of heparinized saline (concentration 50U/5mL). The port pocket was closed with a deep dermal stitch using a running 3-0 Vicryl followed by 4-0 Monocryl subcuticular stitch. The 1 cm incision in the neck was closed with a single interrupted subcuticular stitch using 4-0 Monocryl. Dermabond was applied as a dressing. With the conclusion of the port placement patient was then repositioned in the right lateral decubitus and proctoscopy was undertaken at the request of oncology as an additional means of trying to identify patient's primary tumor location. Full details are given in the Provation procedure note. Patient tolerated all parts of this procedure without difficulty. Patient was then aroused from the sedation and taken to PACU for ongoing recovery were a portable chest x-ray was obtained to confirm port positioning and exclude any pneumothorax. Surgical Findings: ? Normal vascular anatomy with patent right internal jugular vein ? Ease of function on newly placed right Port-A-Cath with tip appearing to terminate in distal SVC Complications Complications: No Admit VTE Documentation VTE Mechan Device Prophylaxis: SCD's (Right lower extremity only given patient's injury history)
--- NOTE | 2025-06-21 13:04 | PCM.POST.ANE ---
Anesthesia: Postop Eval I Current Vital Signs Temperature: 97.0 F Pulse Rate: 68 Blood Pressure: 92/62 Respiratory Rate: 20 Pulse Ox: 100 Oxygen Delivery Method: Room Air Assessment Airway patent: Yes Spontaneous unlabored respirations: Yes Mental status: Calm nausea: No Vomiting: No Anesthesia Complication: No Fluid Hydration Crystalloid volume administer (ml): 1,300 Total IV fluid infused: 1,300 Progress Note Anesthesia document: Postop Eval 1 completed: Yes
--- NOTE | 2025-06-21 13:43 | DCINST_ITS ---
Discharge Instructions Diet Discharge Diet: No restrictions Activity Discharge Activity: May Shower May shower in (days): 1 Ice area for (Minutes): 20 Additional Activity Instructions:: Limit the activity by the nearest upper extremity for 48 hours postop Dressing / Incision Call your doctor if your incision/area has: Increased Pain/ Swelling, Increased Redness, Foul Smelling Discharge and Swelling at the incision site Call your doctor if you observe: Fever of 101 or Higher Remove Dressing in: do not remove dressing (Dermabond (surgical glue) expected to dissolve spontaneously within 7 to 10 days postop using regular showering) Cleanse incision/area with: Soap & Water Follow Up Care Test Results: Test results from this visit will be discussed in further detail at your follow- up appointment, if applicable. Discharge Plan Admission Primary Reason for Your Visit: Port placement Attending Provider: Eliud Marshall Primary Care Provider: Ana Massey Instructions Additional Instructions / Restrictions: Please hold aspirin for 48 hours post procedure Print Language: Slovenian Discharge Orders/Prescriptions Prescriptions: No Action gabapentin 300 mg capsule 300 mg PO QHS diltiazem HCl 120 mg capsule,extended release 24hr 120 mg PO DAILY melatonin 10 mg capsule 20 mg PO HS PRN (Reason: sleep) gabapentin 100 mg capsule 100 mg PO DAILY aspirin 81 mg tablet,delayed release (DR/EC) 81 mg PO DAILY Qty: 90 3RF Referrals / Follow Up: Ana Massey MD [Primary Care Provider] - Disposition Disposition (needs filled in before D/C Order can be placed): Home, Self Care
--- NOTE | 2025-06-21 14:37 | POSTOPAN2_ITS ---
Anesthesia Postop Eval I Sum Postop Eval Completion status Anesthesia document: Postop Eval 1 completed: Yes Anesthesia Postop Eval I Summary Anesthesia Postop Eval I Summary: Anesthesia Postop Eval I: Assessment Summary Airway patent Yes 06/21/25 13:05 [email or web address] Spontaneous unlabored Yes 06/21/25 13:05 [email or web address] [email or web address] respirations Mental status Calm 06/21/25 13:05 [email or web address] nausea No 06/21/25 13:05 [email or web address] [email or web address] Vomiting No 06/21/25 13:05 [email or web address] Anesthesia Postop Eval I: Fluid Summary Crystalloid volume administer 1,300 06/21/25 13:05 [email or web address] (ml) Colloids volume administered ( ml) Blood Product volume administered (ml) Total IV fluid infused 1,300 06/21/25 13:05 [email or web address] Anesthesia Postop Eval I: Summary Notes Anesthesia Complication No 06/21/25 13:05 [email or web address] [email or web address] Anesthesia Complication Comment: Post-operative progress note Anesthesia: Postop Eval II Evaluation Mental status: Awake Pain Level: 1 nausea: No Vomiting: No
--- NOTE | 2025-06-21 14:37 | PCM.POSTANE2 ---
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 Spontaneous unlabored Yes 06/21/25 13:05 WASHING MACHINE [email or web address] respirations Mental status Calm 06/21/25 13:05 WASHING MACHINE [email or web address] nausea No 06/21/25 13:05 WASHING MACHINE [email or web address] Vomiting No 06/21/25 13:05 WASHING MACHINE [email or web address] Anesthesia Postop Eval I: Fluid Summary Crystalloid volume administer 1,300 06/21/25 13:05 WASHING MACHINE [email or web address] (ml) Colloids volume administered ( ml) Blood Product volume administered (ml) Total IV fluid infused 1,300 06/21/25 13:05 WASHING MACHINE [email or web address] Anesthesia Postop Eval I: Summary Notes Anesthesia Complication No 06/21/25 13:05 WASHING MACHINE [email or web address] Anesthesia Complication Comment: Post-operative progress note Anesthesia: Postop Eval II Evaluation Mental status: Awake Pain Level: 1 nausea: No Vomiting: No
== END 2025-06-21 14:21 | disposition home or self-care (01) ==
LOC: SDC 09:51 → AC 09:52
PROVIDERS: PCP Family Medicine; Referring Provider Surgery; Visit Provider Surgery
PROC: (CPT 36561; principal; 2025-06-21 11:15)
DX: C77.1 Secondary and unspecified malignant neoplasm of intrathoracic lymph nodes (principal); C77.4 Secondary and unspecified malignant neoplasm of inguinal and lower limb lymph nodes; C77.2 Secondary and unspecified malignant neoplasm of intra-abdominal lymph nodes; C77.5 Secondary and unspecified malignant neoplasm of intrapelvic lymph nodes; K62.1 Rectal polyp; K64.4 Residual hemorrhoidal skin tags; K63.5 Polyp of colon; D50.0 Iron deficiency anemia secondary to blood loss (chronic); G62.9 Polyneuropathy, unspecified; G25.81 Restless legs syndrome; Z90.49 Acquired absence of other specified parts of digestive tract; Z86.73 Personal history of transient ischemic attack (TIA), and cerebral infarction without residual deficits; Z79.82 Long term (current) use of aspirin; Z79.899 Other long term (current) drug therapy; Z87.891 Personal history of nicotine dependence
CPT/HCPCS: 36561; 45380; 00532; 71045; 77001; 88304; 88305; C1894; C1788

== ENCOUNTER 2025-08-01 09:14 | Emergency (ER) | payer MEDICARE, SELFPAY ==
[2025-08-01 09:15] VITALS: BP 108/78; PULSE 95; RESP 16; TEMP 36.6; O2SAT 99; BMI 25.7
--- NOTE | 2025-08-01 11:14 | RAD_ITS ---
PROCEDURE: CHEST PA AND LATERAL 08/01/2025 REASON FOR EXAM: SOB TECHNIQUE: Procedure Code: RADCXR Modality: DX Procedure: CHEST PA AND LATERAL COMPARISON: April 21, 2025 FINDINGS: Hardware: Right-sided Port-A-Cath is in place. The tip is seen over the junction of the superior vena cava and right atrium. Heart: The heart size is normal. Mediastinum: The mediastinal contour is unremarkable. Lungs: The lungs are clear. Bones: The bones are unremarkable. RAD/Chest PA and Lateral IMPRESSION: No acute cardiopulmonary process Reading Location: [id number]
--- NOTE | 2025-08-01 11:14 | EKG12_ITS ---
Test Reason : DIZZINESS Blood Pressure : */* mmHG Vent. Rate : 77 BPM Atrial Rate : 77 BPM P-R Int : 166 ms QRS Dur : 86 ms QT Int : 374 ms P-R-T Axes : 86 51 61 degrees QTcB Int : 423 ms Normal sinus rhythm Normal ECG Confirmed by SWAPNA INIGUEZ, RAYMUNDO ([id number]), photography editor ANDREW COLEMAN ([id number]) on 08/03/2025 7:27:27 AM Referred By: Confirmed By: RAYMUNDO BARCENAS MD
--- NOTE | 2025-08-01 11:20 | EX.ED.DYSGE1 ---
HPI History of Present Illness Chief Complaint: General Illness Narrative Narrative: Patient is a 70-year-old female presenting to the emergency department for multiple complaints. Patient has a past medical history of widely metastatic squamous cancer to mediastinal, retroperitoneal, pelvic and left groin lymph node of unknown primary. 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 Patient's past medical history is notable for some female organ cancer (patient unclear whether cervical or vaginal) treated by transvaginal surgery in the in [place] and no records available. Patient is currently on systemic combination chemoimmunotherapy with carboplatin, paclitaxel and pembrolizumab. Started chemo on Friday of last week. Started having the worsening tingling and feeling like knives are in my veins in her hands and below the knees bilaterally /Friday. She reports a sore throat as well as 1 episode of shortness of breath that she no longer has. Reports nausea that she also no longer has. She denies fever, chills, chest pain, abdominal pain, vomiting, diarrhea. States that she normally has neuropathy in her lower extremities but states that this is much worse. She called her oncologist who recommended that she come to the emergency department to be evaluated. 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 Iron deficiency anemia due to chronic blood loss Cancer of inguinal/lower limb lymph nodes, secondary Cancer with unknown primary site Hammer toe of right foot History of tobacco use Encounter for screening for malignant neoplasm of lung in patient with less than 30 pack year smoking history Mitral regurgitation Weight loss LUQ abdominal pain Abdominal pain Elevated TSH Lightheadedness Nicotine dependence Dyspnea on exertion Abnormal electrocardiogram [ECG] [EKG] Tachycardia Palpitations Peripheral neuropathy Pseudoseizures Hearing loss Arthritis Atrial flutter Complex renal cyst Iron deficiency anemia Restless leg syndrome Home Medications ?Medication ?Instructions ?Recorded ?Last Taken ?Type gabapentin 300 mg capsule 300 mg PO QHS 10/30/22 07/31/25 History diltiazem HCl 120 mg 120 mg PO DAILY 06/14/24 08/01/25 History capsule,extended release 24 hr melatonin 10 mg capsule 20 mg PO HS PRN sleep 12/14/24 07/31/25 History gabapentin 100 mg capsule 100 mg PO DAILY 12/20/24 08/01/25 History dexamethasone 4 mg tablet 8 mg (2 x 4 mg) PO .COMPLEX #12 07/07/25 07/29/25 Rx tabs lidocaine-prilocaine 2.5 %-2.5 % 1 applic topical ONCE PRN port 07/07/25 07/26/25 Rx topical cream access 30 days #30 grams ondansetron 8 mg disintegrating 8 mg PO Q8H PRN nausea and 07/07/25 08/01/25 Rx tablet vomiting #30 tabs pembrolizumab 200 mg IV Q21D CHEMO #2 vials 07/07/25 07/26/25 Rx prochlorperazine maleate 10 mg 10 mg PO Q6H PRN nausea and 07/07/25 Unknown Rx tablet vomiting #30 tabs Hair prosthesis #1 ea 07/26/25 Unknown Rx ibuprofen 800 mg tablet 800 mg PO Q6H PRN pain 08/01/25 07/31/25 History Allergy/AdvReac Type Severity Reaction Status Date / Time Penicillins Allergy Severe Shortness Verified 08/01/25 09:14 of breath bee venom protein (honey bee) Allergy Intermediate Other Verified 08/01/25 09:14 latex Allergy Intermediate Hives Verified 08/01/25 09:14 Sulfa (Sulfonamide Allergy Intermediate Itching Verified 08/01/25 09:14 Antibiotics) chocolate flavor Allergy Mild Other Verified 08/01/25 09:14 nut - unspecified AdvReac Unknown Other Verified 08/01/25 09:14 Family History Other Anemia Arthritis Asthma Breast cancer CVA (cerebral vascular accident) Cervical cancer Depression Heart disease Hypercholesterolemia Hypertension Kidney disease Liver disease Myocardial infarction Ovarian cancer Surgical History History of esophagogastroduodenoscopy (EGD) History of colonoscopy History of ear surgery Hx of appendectomy Hx of breast implants, bilateral History of bunionectomy (~2018) History of partial hysterectomy (~1981) Hx of cholecystectomy (~1972) Social History Smoking Status: Former smoker Tobacco: How many years used: 53 alcohol intake: former year quit: 1991 substance use type: former substance user Date of last use: sober 34 years and crack/cocaine caffeine: Yes Type: coffee Number of servings: 1 additional social history: Single She only has knowledge of 1 child (others were taken away years ago) ROS ROS ED ROS Narrative See HPI EXAM Physical Exam Narrative Exam Narrative: Vital signs: Reviewed General: Alert and oriented x 3. No acute distress HEENT: Head is normocephalic and atraumatic, sinuses nontender, pupils equal round and reactive. Nares are patent. Oropharynx and throat exams normal. Dry mucous membranes. Neck: Supple without lymphadenopathy nontender Cardiovascular: Regular rate and rhythm, no murmurs. No rubs or gallops. Normal S1 and S2 Respiratory: Clear to auscultation bilaterally. No wheezes, rales, rhonchi Abdominal: Soft and nontender. Normal bowel sounds. No guarding or rebound. Nonsurgical abdomen Extremities: No tenderness. No bruising. Normal range of motion. Normal sensation. Skin: No rash or redness. Neurological: Cranial nerves II through XII are grossly intact. Normal strength in all extremities. Normal cerebellar function. Normal sensation at bilateral lower thighs. Decrease sensation bilaterally below knees. Sensation decreased in bilateral hands. Normal sensation in forearms and upper arms. The rest of the physical exam is unremarkable Const Vital Signs: 08/01/25 09:15 08/01/25 09:31 08/01/25 11:33 Temperature 97.9 F Temperature Source Oral Pulse Rate 95 Respiratory Rate 16 18 Respiratory Effort Normal Respiratory Pattern Normal Blood Pressure 108/78 104/73 Blood Pressure Mean 88 83 Pulse Ox 99 98 Oxygen Delivery Method Room Air Room Air 08/01/25 13:01 08/01/25 14:33 Temperature 98.6 F Temperature Source Pulse Rate 75 70 Respiratory Rate 18 16 Respiratory Effort Respiratory Pattern Blood Pressure 102/51 L 103/61 Blood Pressure Mean 68 75 Pulse Ox 96 96 Oxygen Delivery Method Room Air MDM MDM MDM Narrative Medical decision making narrative: Patient is a 70-year-old female presenting to the emergency department for multiple complaints including nausea and shortness of breath that have this resolved, sore throat and worsening neuropathy in her lower legs and hands. Patient was seen and examined. Vitals are stable. Patient resting bed comfortably no acute distress. Differential includes but is not limited to: Electrolyte imbalance, neuropathy secondary to her chemotherapy, infection including a URI, pneumonia, UTI, ACS. Patient's symptoms are more consistent with neuropathy, no strokelike symptoms on exam. Symptoms are not in a pattern that represent stroke. I do not think the patient requires a CT of the brain. CBC with no leukocytosis and a normal hemoglobin. CMP with no significant abnormality. Magnesium within normal limits. Troponin and reflex stable at 10. Urinalysis with no evidence of urinary tract infection. Chest x-ray reviewed by myself, no abnormality seen. Radiology read in agreement. Viral swab negative. EKG shows normal sinus rhythm. No ischemic changes. No dysrhythmia. Given negative workup, I consulted the patients oncologist, Dr. Goldberg. He agrees given my history that I obtained the physical exam and the negative workup here that it is likely neuropathy caused by her chemotherapy which the ones she is on are known to cause neuropathy. Given it is in a stocking and glove pattern I think this is likely what is causing her symptoms. Patient ambulated without difficulty. Patient and family at bedside were updated on the negative workup and the likely diagnosis. Patient discharged from the Emergency Department. I do not feel that the patient's evaluation reveals any acute reason for admission at this time. I instructed them to either follow-up with their primary care physician or promptly return to the Emergency Department for reevaluation should symptoms worsen or new symptoms develop. I explained what symptoms would indicate the need to return to the emergency department. Shared decision making was used. The patient voiced understanding of the treatment plan and is agreeable with it. Clinical impression Chemotherapy adverse reaction Neuropathy History & Record Review Discussion w/independent historian: Patient Additional record(s) reviewed:: Prior outpatient record and Prior labs Lab Data Attestation: I reviewed the patient's lab results. Labs: Laboratory Results - last 24 hr 08/01/25 08/01/25 08/01/25 11:20 11:30 13:23 WBC 5.7 RBC 4.41 Hgb 13.3 Hct 39.7 MCV 90.0 MCH 30.2 MCHC 33.5 RDW Std Deviation 46.1 H RDW Coeff of Jon 13.9 Plt Count 144 L MPV 11.3 Immature Gran % (Auto) 1.200 H Neut % (Auto) 67.5 Lymph % (Auto) 14.0 L [place] % (Auto) 7.8 Eos % (Auto) 8.1 H Baso % (Auto) 1.4 H Absolute Neuts (auto) 3.8 Absolute Lymphs (auto) 0.79 L Nucleated RBC % 0 Differential Comment SCANNED Sodium 134 Potassium 4.0 Chloride 98 Carbon Dioxide 27.1 Anion Gap 8 BUN 14 Creatinine 0.59 L Estim Creat Clear Calc 74.43 Est GFR (MDRD) Non-Af 96 BUN/Creatinine Ratio 22.8 H Glucose 95 Calcium 8.3 Magnesium 1.8 Troponin T High Sens 10 Troponin T Hi Sens 2 Hr 10 Urine Color Yellow Urine Clarity Clear Urine pH 7.0 Ur Specific [place] 1.005 Urine Protein 15 H Urine Glucose (UA) Normal Urine Ketones Negative Urine Occult Blood Negative Urine Nitrite Negative Urine Bilirubin Negative Urine Urobilinogen Normal Ur Leukocyte Esterase 100 H Urine RBC 0-5 SEEN Urine WBC 5-10 SEEN Ur Squamous Epith Cells 0-5 SEEN Urine Bacteria 0 SEEN Urine Mucus RARE Radiography Diagnostic Testing: Clinical Impression(s) from Imaging Studies Chest X-Ray 08/01/25 11:14 IMPRESSION: No acute cardiopulmonary process Reading Location: [facility] Discharge Plan Triage Chief Complaint: General Illness ED Provider: Ernestine Pabon Dx/Rx/DC Orders Clinical Impression: Neuropathy, Chemotherapy adverse reaction Instructions: Cancer Peripheral Neuropathy Prescriptions: No Action gabapentin 300 mg capsule 300 mg PO QHS diltiazem HCl 120 mg capsule,extended release 24hr 120 mg PO DAILY melatonin 10 mg capsule 20 mg PO HS PRN (Reason: sleep) lidocaine-prilocaine 2.5-2.5 % cream 1 applic topical ONCE PRN (Reason: port access) 30 Days Qty: 30 2RF dexamethasone 4 mg tablet 8 mg PO .COMPLEX Qty: 12 5RF Rx Instructions: 8 mg orally daily on days 2, 3 and 4 of chemotherapy cycle prochlorperazine maleate 10 mg tablet 10 mg PO Q6H PRN (Reason: nausea and vomiting) Qty: 30 2RF ondansetron 8 mg tablet,disintegrating 8 mg PO Q8H PRN (Reason: nausea and vomiting) Qty: 30 1RF (DME) Hair prosthesis See Rx Instructions .Route .MEDSUPPLY Qty: 1 0RF Rx Instructions: As directed gabapentin 100 mg capsule 100 mg PO DAILY ibuprofen 800 mg tablet 800 mg PO Q6H PRN (Reason: pain) Patient Comments: PT HAS BEEN TAKING 1/2 TAB pembrolizumab 100 mg/4 mL 200 mg IV Q21D Qty: 2 12RF Primary Care Provider: Ana Massey Referrals: Ana Massey MD [Primary Care Provider, [facility]] - As soon as possible Activity Restrictions/Additional Instructions: Follow-up with your oncologist to soon as possible. Your evaluation in the Emergency Department did not reveal any acute reason for admission. However, I want to emphasize that you may be early in the course of a disease process or illness even if it is not present. For this reason you should follow-up within 24 hours for reevaluation with either your primary care physician or if necessary back here in the Emergency Department. You should return to the Emergency Department immediately if your symptoms worsen or new symptoms develop. Print Language: Togolese Disposition Disposition: Home, Self Care Discharge Date/Time: 08/01/25 14:34
[2025-08-01 11:33] VITALS: BP 104/73; RESP 18; O2SAT 98
[2025-08-01 11:34] LABS: Hematocrit 39.7 % (37-47); Hemoglobin 13.3 g/dL (12.0-15.0); Immature Granulocytes Count 0.070 X10^3/uL (0.0-0.0); Mean Corp Hgb Conc 33.5 g/dL (32-36); Mean Corpuscular Volume 90.0 fL (81-99); Mean Platelet Vol. 11.3 fl (6.2-12.0); NRBC Flagged by Analyzer 0 % (0-5); POSITIVE MORPHOLOGY YES; Platelet Count 144 K/mm3 (150-450); RBC Distribution Width CV 13.9 % (11.6-14.6); RBC Distribution Width SD 46.1 fl (35.1-43.9); Red Blood Count 4.41 M/mm3 (4.2-5.4); White Blood Count 5.7 K/mm3 (4.4-11.0)
[2025-08-01 11:38] LABS: Differential Indicated SCAN CRITERIA MET
[2025-08-01 11:45] LABS: Glucose, Dipstick Normal (Normal); Ketone-Dipstick Negative (Negative); Leukocyte Esterase-Dipstick 100 /ul (Negative); Nitrite-Dipstick Negative (Negative); Occult Blood-Urine Negative /ul (Negative); Protein-Dipstick 15 mg/dl (Negative); Specific Gravity, Urine 1.005 (1.002-1.030); Urine Bilirubin Dipstick Negative (Negative)
[2025-08-01 11:48] LABS: Color, Urine Yellow (Yellow)
[2025-08-01 11:52] LABS: Squamous Epithelial Cells - UA 0-5 SEEN /hpf (5-10)
[2025-08-01 11:53] LABS: Mucous, Urine RARE /hpf (<or=2+); Red Blood Cells-Urine 0-5 SEEN /hpf (0-5)
[2025-08-01 11:55] LABS: Differential Comment SCANNED
[2025-08-01 12:03] LABS: Magnesium 1.8 mg/dL (1.5-2.2)
[2025-08-01 12:06] LABS: Anion Gap 8 (5-15); BUN 14 mg/dL (4-19); BUN/Creat Ratio 22.8 RATIO (10-20); Calcium,Total 8.3 mg/dL (7.6-11.0); Carbon Dioxide 27.1 mmol/L (21.0-32.0); Chloride 98 mmol/L (98-108); Estimated Creatinine Clearance 74.43 ml/min (50-250); Glucose 95 mg/dL (70-99); Potassium 4.0 mmol/L (3.3-5.1); Troponin T High Sensitivity 10 ng/L (<=14)
[2025-08-01 13:01] VITALS: BP 102/51; PULSE 75; RESP 18; O2SAT 96
[2025-08-01 14:13] LABS: Troponin T High Sens 2 HR 10 ng/L (<=14)
[2025-08-01 14:33] VITALS: BP 103/61; PULSE 70; RESP 16; TEMP 37; O2SAT 96
== END 2025-08-01 14:34 | disposition home or self-care (01) ==
PROVIDERS: Emergency Provider Student in an Organized Health Care Education/Training Program; PCP Family Medicine; Visit Provider Student in an Organized Health Care Education/Training Program
DX: G62.0 Drug-induced polyneuropathy (principal); C78.1 Secondary malignant neoplasm of mediastinum; C78.6 Secondary malignant neoplasm of retroperitoneum and peritoneum; C79.89 Secondary malignant neoplasm of other specified sites; C77.4 Secondary and unspecified malignant neoplasm of inguinal and lower limb lymph nodes; C80.1 Malignant (primary) neoplasm, unspecified; T45.1X5A Adverse effect of antineoplastic and immunosuppressive drugs, initial encounter; R06.02 Shortness of breath; G25.81 Restless legs syndrome; Z86.73 Personal history of transient ischemic attack (TIA), and cerebral infarction without residual deficits; Z79.899 Other long term (current) drug therapy; Z87.891 Personal history of nicotine dependence
CPT/HCPCS: 36591; 71046; 80048; 81001; 83735; 84484; 85025; 87631; 93005; 99283; A4216

== ENCOUNTER → 2025-08-19 | Outpatient (CLI) | payer MEDICARE, SELFPAY | END | disposition home or self-care (01) | LOC: LABSPEC 15:02 | PROVIDERS: PCP Family Medicine; Referring Provider Family Medicine; Visit Provider Family Medicine | DX: R82.90 Unspecified abnormal findings in urine (principal) | CPT/HCPCS: 87086; 87088; 87186 ==